=== PATIENT | female | born 1960 | race Caucasian/White ===

== ENCOUNTER → 2016-05-04 | Outpatient (CLI) | payer MEDICARE, OTHER ==
--- NOTE | 2016-05-04 13:12 | MM ---
Reason for exam: additional evaluation requested from prior study. Last mammogram was performed 1 year and 2 months ago. History: Patient is nulliparous. Benign MG stereo VAD BX RT of the right breast, March 18, 2015. Physical Findings: Dr. Fry did not find any significant physical abnormalities on exam. MG 3D Diag Mammo W/Cad CARMEN Bilateral CC and MLO view(s) were taken. Prior study comparison: March 06, 2015, right breast MG 3d work up w/cad RT. February 20, 2015, bilateral MG 3d screening mammo w/cad. The breast tissue is heterogeneously dense. This may lower the sensitivity of mammography. Finding: There are typically benign round, grouped/clustered and diffuse calcifications in the right breast. Previous mammotome biopsy in the right breast. There is no discrete abnormality. These results were verbally communicated with the patient and result sheet given to the patient on 05/04/16. ASSESSMENT: Benign, BI-RAD 2 RECOMMENDATION: Routine screening mammogram of both breasts in 1 year.
--- NOTE | 2016-05-04 22:00 | WWHP ---
CHIEF COMPLAINT: The patient is here for her routine gynecologic exam and mammogram. HPI: This is a 55-year-old, G2, P2 with an LMP of 2010. The patient is without gynecologic complaints. The patient is being seen with a integrated circuit layout designer because of the patient's history of deafness. PAST MEDICAL HISTORY: The patient was born deaf. She also has type 2 diabetes and hypothyroidism. MEDICATIONS: 1. Levothyroxine 175 mcg daily. 2. Glipizide 10 mg b.i.d. 3. Loratadine 10 mg daily. 4. Ibuprofen 800 mg t.i.d. p.r.n. 5. Janumet mg daily. ALLERGIES: No known drug allergies. PAST SURGICAL HISTORY: section x2, right elbow surgery, right hand surgery, cholecystectomy and removal of kidney stones in the past. She also had a right breast biopsy in 2014, which was benign. Past PLASTIC MOLDER and family histories are unchanged from the 2016 H&P. SOCIAL HISTORY: She denies tobacco, alcohol and drug use. She has been twice and is not seeing anybody at this time and is not sexually active. She does not work outside the home. REVIEW OF SYSTEMS: Weight has been stable. She denies respiratory, cardiac or GI problems. PHYSICAL EXAM: Blood pressure 130/71. Height 5 feet 0 inches. Weight 218 pounds. Temperature 97.0, pulse 71. This is a well-developed, obese white female who is alert and oriented x3, in no acute distress. HEENT: Patient is deaf. HEENT is otherwise within normal limits. NECK: Supple without mass or thyromegaly. CHEST AND LUNGS: Clear to auscultation. HEART: Regular rate and rhythm. Breasts are without mass or discharge. Axillary is negative for adenopathy. BACK: Negative for CVA tenderness. ABDOMEN: Obese, soft, nontender without palpable masses. PELVIC: External genitalia reveal mild atrophy without lesions. Cervix and vagina reveal mild atrophy without lesions. There is no evidence of prolapse. The uterus is midposition, nongravid size and nontender. There are no palpable adnexal masses or tenderness. Bimanual is somewhat limited secondary to her size. Rectovaginal is negative for mass or tenderness and is negative for occult blood. EXTREMITIES: Nontender. IMPRESSION: 1. A 55-year-old menopausal female with unremarkable gynecologic exam. 2. Obesity. PLAN: 1. Pap smear was deferred, since she had normal one last year. 2. Self-breast examination was discussed. 3. Mammogram will be done today. 4. I have recommended screening colonoscopy, since she has not had this done, and Dr. De La Garza's card was given to the patient for this. 5. She will return in 1 year.
== END | disposition home or self-care (01) ==
LOC: WWCWWP 11:43 → EEVIPCON 12:00
PROVIDERS: ATTEND Obstetrics & Gynecology
DX: R92.8 Other abnormal and inconclusive findings on diagnostic imaging of breast (principal)
CPT/HCPCS: G0204; G0279

== ENCOUNTER 2017-02-13 07:39 | Day surgery (SDC) | payer MEDICARE, OTHER ==
[2017-01-30 14:47] VITALS: BMI 42.4
[~2017-02-13 07:39] MED LIST: LACTATED RINGERS 1,000 ML IV SCH; LIDOCAINE 1% 20 ML VIAL (10MG/ML) FOR IV START INTRADERMA PRN
[2017-02-13 09:28] VITALS: RESP 16; TEMP 97.6
[2017-02-13 09:39] LABS: Glucose,Whole Blood 148 mg/dL (75-99)
[2017-02-13] MEDS ORDERED: PROPOFOL 10 MG/ML 20 ML VIAL IV ONE (10:09)
--- NOTE | 2017-02-13 10:24 | P.GSHP ---
History of Present Illness H&P Date: 02/13/17 Chief Complaint: Screening colonoscopy This a 56-year-old female referred from Dr. Clarita Armando. Patient is today for screening colonoscopy. She denies a significant GI complaints. Past Medical History Past Medical History: Diabetes Mellitus, Hyperlipidemia, Thyroid Disorder Additional Past Medical History / Comment(s): DEAF, KIDNEY STONE HISTORY History of Any Multi-Drug Resistant Organisms: None Reported Past Surgical History: Cholecystectomy, Orthopedic Surgery Additional Past Surgical History / Comment(s): RT elbow SX Past Anesthesia/Blood Transfusion Reactions: No Reported Reaction Smoking Status: Never smoker - Past Family History Mother History Unknown: Yes Additional Family Medical History / Comment(s): DOESN'T KNOW FAMILY HX Medications and Allergies Home Medications Medication Instructions Recorded Confirmed Type Ibuprofen [Motrin] 800 mg PO Q8HR PRN 02/24/14 02/13/17 History Loratadine [Claritin] 10 mg PO DAILY 02/24/14 02/13/17 History Atorvastatin [Lipitor] 10 mg PO DAILY 01/30/17 02/13/17 History Biotin 10,000 mcg PO DAILY 01/30/17 02/13/17 History Garcinia Cambogia 1 each PO DAILY 01/30/17 02/13/17 History Levothyroxine Sodium [Synthroid] 137 mcg PO DAILY 01/30/17 02/13/17 History metFORMIN HCL 1,000 mg PO BID 01/30/17 02/13/17 History Allergies Allergy/AdvReac Type Severity Reaction Status Date / Time No Known Allergies Allergy Verified 02/13/17 09:11 Surgical - Exam Vital Signs Temp Pulse Resp BP Pulse Ox 97.6 F 84 16 139/86 97 02/13/17 09:27 02/13/17 09:27 02/13/17 09:27 02/13/17 09:27 02/13/17 09:27 - General well developed, no distress - Eyes PERRL - ENT normal pinna - Neck no masses - Respiratory normal expansion - Cardiovascular Rhythm: regular - Abdomen Abdomen: soft, non tender Results - Labs Abnormal Lab Results - Last 24 Hours (Table) 02/13/17 Range/Units 09:26 POC Glucose (mg/dL) 148 H (75-99) mg/dL Assessment and Plan Assessment: We'll perform screening colonoscopy.
--- NOTE | 2017-02-13 10:35 | P.OP ---
Date of Procedure: 02/13/17 Preoperative Diagnosis: Screening colonoscopy Postoperative Diagnosis: External hemorrhoids Normal colon Procedure(s) Performed: Colonoscopy Anesthesia: MAC Surgeon: Kei Narayanan Pathology: none sent Condition: stable Disposition: PACU Description of Procedure: the patient's placed on the endoscopy table in the lateral position. She received IV sedation. Digital rectal exam was performed which revealed external hemorrhoids. The flexible colonoscope was then placed patient anus and passed throughout the entire colon. The ileocecal valve was visualized. The cecum, ascending, transverse colon appeared normal. The scope was then brought back to the descending and sigmoid colon and this appeared normal. Scope was then withdrawn into the rectum and this was normal. Scope was withdrawn for patient.
[2017-02-13 11:35] VITALS: BP 168/90; PULSE 80
== END 2017-02-13 11:48 | disposition home or self-care (01) ==
LOC: ORWHC2ENDO 07:39 → EEVIPCON 09:30 → ORWHC2ENDO 11:48
PROVIDERS: ATTEND Surgery
DX: Z12.11 Encounter for screening for malignant neoplasm of colon (principal); K64.4 Residual hemorrhoidal skin tags; E11.9 Type 2 diabetes mellitus without complications; E78.5 Hyperlipidemia, unspecified; E07.9 Disorder of thyroid, unspecified; H91.90 Unspecified hearing loss, unspecified ear; Z79.84 Long term (current) use of oral hypoglycemic drugs; Z79.899 Other long term (current) drug therapy
CPT/HCPCS: G0121; J2704

== ENCOUNTER → 2017-05-23 | Outpatient (CLI) | payer MEDICARE, OTHER ==
--- NOTE | 2017-05-25 07:59 | MM ---
Reason for exam: screening (asymptomatic). Last mammogram was performed 1 year and 1 month ago. History: Patient is postmenopausal and had first child at age 35. Benign MG stereo VAD BX RT of the right breast, March 18, 2015. Physical Findings: A clinical breast exam by your physician is recommended on an annual basis and results should be correlated with mammographic findings. MG 3D Screening Mammo W/Cad Bilateral CC and MLO view(s) were taken. Prior study comparison: May 04, 2016, bilateral MG 3d diag mammo w/cad CARMEN. March 06, 2015, right breast MG 3d work up w/cad RT. The breast tissue is heterogeneously dense. This may lower the sensitivity of mammography. Previous mammotome biopsy in the right breast with adjacent calcifications unchanged. There is chronic nodularity in the right breast superior anterior position. ASSESSMENT: Negative, BI-RAD 1 RECOMMENDATION: Routine screening mammogram of both breasts in 1 year.
== END | disposition home or self-care (01) ==
LOC: RADMAMWWP 07:23
PROVIDERS: ATTEND Family Medicine
DX: Z12.31 Encounter for screening mammogram for malignant neoplasm of breast (principal)
CPT/HCPCS: 77063; 77067

== ENCOUNTER → 2017-10-04 | Outpatient (CLI) | payer MEDICARE, OTHER ==
[2017-10-04 09:53] LABS: Albumin 4.2 g/dL (3.5-5.0); Calcium 9.6 mg/dL (8.4-10.2); Magnesium 1.4 mg/dL (1.6-2.3); Phosphorus 3.5 mg/dL (2.5-4.5); Potassium 5.4 mmol/L (3.5-5.1); Total Bilirubin 0.3 mg/dL (0.2-1.3); Total Protein 7.1 g/dL (6.3-8.2); Uric Acid 7.9 mg/dL (3.7-7.4)
[2017-10-04 13:00] LABS: MCH 28.5 pg (25.0-35.0)
[2017-10-04 13:12] LABS: Basophils # (A) 0.1 k/uL (0-0.2); Basophils % (A) 1 %; Eosinophils # (A) 0.4 k/uL (0-0.7); Eosinophils % (A) 4 %; HCT 37.3 % (34.0-46.0); Lymphocytes # (A) 1.2 k/uL (1.0-4.8); Lymphocytes % (A) 13 %; MCHC 32.3 g/dL (31.0-37.0); MCV 88.3 fL (80.0-100.0); Mean Platelet Volume 7.8; Monocytes # (A) 0.5 k/uL (0-1.0); Monocytes % (A) 5 %; Neutrophils # (A) 7.3 k/uL (1.3-7.7); Neutrophils % (A) 76 %; Platelet Count 345 k/uL (150-450); RBC 4.23 m/uL (3.80-5.40); RDW 14.8 % (11.5-15.5); WBC 9.6 k/uL (3.8-10.6)
[2017-10-04 16:26] LABS: Vitamin D 25 Hydroxy 26.5 ng/mL (30.0-100.0)
[2017-10-04 16:41] LABS: Parathyroid Hormone Intact 29.1 pg/mL (14.0-72.0)
[2017-10-04 20:02] LABS: Hemoglobin A1C 6.1 % (4.0-6.0)
== END | disposition home or self-care (01) ==
LOC: LABWHC1 08:58
PROVIDERS: ATTEND Family Medicine
DX: E11.22 Type 2 diabetes mellitus with diabetic chronic kidney disease (principal); N18.3 Chronic kidney disease, stage 3 (moderate)
CPT/HCPCS: 36415; 80053; 80061; 82043; 82306; 82570; 83036; 83735; 83970; 84100; 84550; 85025

== ENCOUNTER → 2017-12-20 | Outpatient (CLI) | payer MEDICARE, OTHER | END | disposition home or self-care (01) | LOC: LABWHC1 10:52 | PROVIDERS: ATTEND Physician Assistant Medical | DX: L65.9 Nonscarring hair loss, unspecified (principal) | CPT/HCPCS: 36415; 84132 ==

== ENCOUNTER → 2018-05-28 | Outpatient (CLI) | payer MEDICARE, OTHER ==
[2018-05-28 11:14] LABS: Basophils # (A) 0.1 k/uL (0-0.2); Basophils % (A) 1 %; Eosinophils # (A) 0.3 k/uL (0-0.7); Eosinophils % (A) 3 %; HCT 38.2 % (34.0-46.0); Lymphocytes # (A) 1.2 k/uL (1.0-4.8); Lymphocytes % (A) 12 %; MCH 28.9 pg (25.0-35.0); MCHC 31.4 g/dL (31.0-37.0); Mean Platelet Volume 6.5; Monocytes # (A) 0.4 k/uL (0-1.0); Monocytes % (A) 4 %; Neutrophils # (A) 8.4 k/uL (1.3-7.7); Neutrophils % (A) 81 %; Platelet Count 403 k/uL (150-450); RBC 4.15 m/uL (3.80-5.40); RDW 14.6 % (11.5-15.5); WBC 10.4 k/uL (3.8-10.6)
[2018-05-28 16:35] LABS: Parathyroid Hormone Intact 41.9 pg/mL (14.0-72.0)
[2018-05-28 16:50] LABS: Vitamin D 25 Hydroxy 36.6 ng/mL (30.0-100.0)
[2018-05-28 18:32] LABS: Albumin 4.5 g/dL (3.80-4.90); Albumin/Globulin Ratio 1.88 (1.60-3.17); Anion Gap 8.1 mmol/L (4.00-12.00); Calcium 9.7 mg/dL (8.7-10.3); Carbon Dioxide 18.9 mmol/L (21.6-31.8); Globulin 2.4 g/dL (1.6-3.3); LDL Cholesterol,Calculated 53.2 mg/dL (0.0-131.0); Total Bilirubin 0.2 mg/dL (0.3-1.2); Total Protein 6.9 g/dL (6.2-8.2); Uric Acid 6.9 mg/dL (2.9-7.7); VLDL Calculation 15.8 mg/dL (5.00-40.00)
[2018-05-28 21:13] LABS: Hemoglobin A1C 7.9 % (4.0-6.0)
[2018-05-30 07:54] LABS: Potassium 6.6 mmol/L (3.5-5.5)
== END ==
LOC: LABWHC1 10:04
PROVIDERS: ATTEND Family Medicine
DX: E78.5 Hyperlipidemia, unspecified (principal); E11.22 Type 2 diabetes mellitus with diabetic chronic kidney disease; N18.3 Chronic kidney disease, stage 3 (moderate); E83.42 Hypomagnesemia
CPT/HCPCS: 36415; 80053; 80061; 82043; 82306; 82570; 83036; 83735; 83970; 84550; 85025

== ENCOUNTER → 2018-08-24 | Outpatient (CLI) | payer MEDICARE, OTHER ==
[2018-08-24 11:20] LABS: HCT 38.2 % (34.0-46.0); MCH 28.8 pg (25.0-35.0); MCHC 31.6 g/dL (31.0-37.0); MCV 91.4 fL (80.0-100.0); Mean Platelet Volume 7.8; Platelet Count 285 k/uL (150-450); RBC 4.18 m/uL (3.80-5.40); RDW 14.8 % (11.5-15.5); WBC 7.9 k/uL (3.8-10.6)
[2018-08-24 11:29] LABS: INR 0.9 (<1.2); Partial Thromboplastin Time 23.2 sec (22.0-30.0); Prothrombin Time 10.2 sec (9.0-12.0)
[2018-08-24 11:41] LABS: Appearance,Urine Clear (Clear); Bacteria,Urine Rare /hpf; Bilirubin,Urine Negative (Negative); Blood,Urine Negative (Negative); Color,Urine Yellow; Glucose,Urine (UA) Negative (Negative); Ketones,Urine Negative (Negative); Leukocyte Esterase,Urine Moderate (Negative); Nitrite,Urine Negative (Negative); PH, Urine 6.5 (5.0-8.0); Protein,Urine Negative (Negative); RBC,Urine 6 /hpf (0-5); Squamous Epithelial Cell,Urine 3 /hpf (0-4); Urobilinogen,Urine <2.0 mg/dL (<2.0); WBC,Urine 9 /hpf (0-5)
[2018-08-24 11:47] LABS: Albumin 4.3 g/dL (3.5-5.0); Calcium 9.7 mg/dL (8.4-10.2); Potassium 5.5 mmol/L (3.5-5.1); Total Bilirubin 0.5 mg/dL (0.2-1.3); Total Protein 7.3 g/dL (6.3-8.2)
[2018-08-24 17:56] LABS: Hemoglobin A1C 6.7 % (4.0-6.0)
== END | disposition home or self-care (01) ==
LOC: LABPAT 10:15
PROVIDERS: ATTEND Orthopaedic Surgery
DX: Z01.812 Encounter for preprocedural laboratory examination (principal); E11.65 Type 2 diabetes mellitus with hyperglycemia
CPT/HCPCS: 80053; 81001; 83036; 85027; 85610; 85730; 86850; 86900; 86901; 87070

== ENCOUNTER 2018-09-04 07:00 | Inpatient (IN) | payer MEDICARE, OTHER ==
[~2018-09-04 07:00] MED LIST changes: +HYDROmorphone 0.5 MG/0.5 ML SYRINGE IVP PRN; -LACTATED RINGERS 1,000 ML IV SCH; +MIDAZOLAM 2 MG/2 ML VIAL IV PRN; +ONDANSETRON 4 MG/2 ML VIAL IVP ONE; +ROPIVACAINE 246.25 MG, EPINEPHrine 0.5 MG, KETOROLAC 30 MG, cloNIDine HCL/PF 80 MCG, WA... MISCELLANE ONE; +SCOPOLAMINE 1.5MG/72HR PATCH TRANSDERM ONE; +TRANEXAMIC ACID 1,000 MG in SODIUM CHLORIDE 0.9% 100 ML IVPB ONE; +ceFAZolin IN SWFI 2 GM/20 ML SYRINGE IVP ONE
[2018-09-04] MEDS ORDERED: NALOXONE 0.4 MG/ML 1 ML VIAL IV PRN (08:48)
[2018-09-04] MEDS ORDERED: HYDROmorphone 1 MG/ML 1 ML SYRINGE IVP PRN (08:48)
[2018-09-04] MEDS ORDERED: hydrOXYzine PAMOATE 25 MG CAP PO PRN (08:48)
[2018-09-04] MEDS ORDERED: ONDANSETRON 4 MG/2 ML VIAL IVP PRN (08:48)
[2018-09-04] MEDS ORDERED: HYDROmorphone 0.5 MG/0.5 ML SYRINGE IVP PRN ×2 (08:48)
[2018-09-04] MEDS ORDERED: DIAZEPAM 5 MG TAB PO PRN (08:48)
[2018-09-04] MEDS ORDERED: HYDROcodone/APAP 5-325MG 1 EACH TAB PO PRN (08:48)
[2018-09-04] MEDS ORDERED: MAGNESIUM HYDROXIDE 2,400 MG/10 ML CUP PO PRN (08:48)
[2018-09-04 08:54] LABS: Glucose,Whole Blood 127 mg/dL (75-99)
[2018-09-04] MEDS: LACTATED RINGERS 1,000 ML IV SCH ×2 (08:55→09:23)
[2018-09-04] MEDS: ACETAMINOPHEN TAB 500 MG TAB PO ONE ×2 (09:00→16:34)
[2018-09-04] MEDS: DEXAMETHASONE SOD PHOSPHATE 10 MG/ML 1 ML VIAL IV ONE ×2 (09:00→18:18)
[2018-09-04] MEDS: MELOXICAM 7.5 MG TAB PO ONE ×2 (09:00→16:35)
[2018-09-04] MEDS ORDERED: fentaNYL (PF) 50 MCG/ML 2 ML AMP ONE (09:18)
[2018-09-04] MEDS ORDERED: LIDOCAINE 1% INJ 10MG/ML (20 ML MDV) ONE (09:18)
[2018-09-04] MEDS ORDERED: SODIUM CHLORIDE 0.9% IRRIG 1,000 ML BTL IRRIGATION ONE (09:18)
[2018-09-04] MEDS ORDERED: TRANEXAMIC ACID 1,000 MG/10 ML VIAL ONE (09:18)
[2018-09-04] MEDS ORDERED: MIDAZOLAM 2 MG/2 ML VIAL ONE (09:18)
[2018-09-04] MEDS ORDERED: HEPARIN SODIUM,PORCINE 10,000 UNIT/ML 1 ML VIAL ONE (09:18)
[2018-09-04] MEDS ORDERED: SODIUM CHLORIDE 0.9% 100 ML BAG ONE (09:18)
[2018-09-04] MEDS ORDERED: PROPOFOL 10 MG/ML 20 ML VIAL IV ONE (09:18)
[2018-09-04] MEDS ORDERED: ceFAZolin 3,000 MG in SODIUM CHLORIDE 0.9% IRRIGATIO 3,000 ML IRRIGATION ONE (09:23)
--- NOTE | 2018-09-04 10:39 | P.OP ---
Date of Procedure: 09/04/18 Preoperative Diagnosis: Severe osteoarthritis left hip Postoperative Diagnosis: Severe osteoarthritis left hip Procedure(s) Performed: Left total hip arthroplasty with a direct anterior approach Implants: Foster and nephew Polarstem size 1 standard Foster & Nephew R3, 3 hole acetabular shell, 48 mm Foster [employer] Nephew reflection 6.5 mm cancellus screw, 20 mm 2 Foster [employer] Nephew R3, XLPE 20 acetabular liner Foster & Nephew Oxinium femoral head 32 m, -3 All components were press-fit. The articulation is Oxinium on polyethylene. Anesthesia: spinal Surgeon: Bryce Rodriguez Critical Care Physician Assistant #1: Dorcas Braga Estimated Blood Loss (ml): 100 Pathology: other Condition: stable Disposition: PACU Indications for Procedure: After failure of conservative treatment we discussed the surgical and nonsurgical treatment options at length. Patient wishes to proceed with a total hip arthroplasty with a direct anterior approach. Complications specific to this procedure were discussed at length, including but not limited to infection, leg length discrepancy, dislocation, and nerve injury. Patient is aware of all these complications and informed consent was obtained Operative Findings: The operative findings are consistent with severe osteoarthritis of the left hip Description of Procedure: Patient was seen and evaluated in the preoperative area, consent was reviewed, and the surgical site was marked with a skin marker. Patient was then brought to the operating room and given prophylactic antibiotics intravenously. 1 g of Tranexamic acid was also given. A spinal anesthetic was administered by the anesthesia department. The patient was then placed on the [place] table with the bony prominences well-padded. The hip area was then prepped and draped in usual sterile fashion. A universal timeout was then performed, which confirmed the patient's name, surgical site, ALLERGIES, and procedure being performed. Next the incision site was located at 1 cm distal and 1 cm lateral to the anterior superior iliac spine. The skin and subcutaneous tissues were sharply incised. Incision was carefully dissected down to the fascia overlying the tensor fascia edilia muscle. This fascia was then incised in line with the incision. Next, using blunt finger dissection, the tensor fascia edilia muscle was dissected off its investing fascia. The muscle was then carefully retracted laterally with a cobra retractor over the lateral neck of the femur. Next, the circumflex vessels were identified and cauterized using the AquaMantis device. The anterior hip capsule was then exposed. The capsule was then opened and an inverted T fashion. Cobra retractors were then placed intracapsularly. The proximal femur was then visualized. The femoral neck was then osteotomized appropriate level above the lesser trochanter. Small amount of traction was placed with the [place] table. A small wedge of bone was then removed from the remaining femoral head. Next, using a corkscrew femoral head was easily removed from the acetabulum. On gross visual inspection, the femoral head had complete loss of articular cartilage in multiple periarticular osteophytes. Attention was then turned to the acetabulum. the acetabulum was exposed and any remaining labrum was excised. Sequential reaming of the acetabulum was performed using fluoroscopic guidance. When the appropriate size was reached, a trial was then placed. The position and fit of the trial was checked with fluoroscopy. The trial was then removed. Then, using fluoroscopic guidance, the final implant was impacted at 20 of anteversion and 40 of abduction, and fully seated in the acetabulum. 2 screws were then placed in the acetabulum. Again fluoroscopy was used to check position of the screws. Next, the liner was then impacted, with a 20 elevated liner located in the anterior superior quadrant. Component locking was confirmed. Attention was then directed to the femur. With the aid of the [place] table, the femur was externally rotated to approximately 130, extended, and abducted under the opposite leg. A side hook was then placed under the proximal femur, and the side hook elevator was used to elevate the proximal femur. Retractors were then placed. A capsular release was performed, as well as a release of the conjoined tendon, which afforded excellent visualization of the proximal femur. Next, a box osteotome was used to lateralize the proximal femur. A sail finisher hand was then used to locate the femoral canal. Sequential broaching was then performed with appropriate size which afforded excellent fixation in the proximal femur. A trial was then placed with appropriate head and neck, and the hip was gently reduced with the aid of the [place] table. Fluoroscopy was then used to check position of the components, as well as to ensure equal leg lengths. The hip was then gently dislocated and the trials were then removed. Final implants were then impacted and the hip was again reduced. Final fluoroscopic x-rays confirmed that the components were in anatomic position, as well as equal leg lengths. The hip was also taken through range of motion, and found to be stable. The hip was then copiously irrigated with antibiotic solution with pulsatile lavage. The hip was then irrigated with Irrisept solution. The soft tissues were then injected with a ropivacaine solution, which consisted of 246.25 mg of ropivacaine, 0.5 mg of epinephrine, 30 mg of Toradol, 80 g of clonidine, and 48.45 mL of sterile water, for a total of 100 mL of fluid injected. A second dose of 1 g of Tranexamic acid was also given. the fascia was then closed with 2-0 strata fix suture. The subcutaneous tissue was closed with 3-0 Vicryl. The subcuticular tissue was closed with 3-0 strata fix suture. The skin was then closed with Dermabond glue and a sterile silver dressing. The patient was then transferred to the recovery room in stable condition. The wellness assistant HAYDER Gooden was required due to the complexity of surgery, and the need for skilled surgical services manager for positioning, draping, exposure, retraction, and closure of the wound.
--- NOTE | 2018-09-04 10:54 | FL ---
EXAMINATION TYPE: FL guidance operating room, XR Hip Limited LT DATE OF EXAM: 09/04/2018 CLINICAL HISTORY: Left hip osteoarthritis. TECHNIQUE: Fluoroscopy. Limited views left hip. COMPARISON: None. FINDINGS: Fluoroscopic guidance was provided during left hip replacement procedure performed by Dr. Rodriguez. A total of 53 seconds of fluoroscopic time was utilized during the procedure and two spot intraoperative images are acquired. Intraoperative images acquired show metallic cover from left hip arthroplasty satisfactory in positio n on single frontal projection. IMPRESSION: As Above.
[2018-09-04 11:19] LABS: Glucose,Whole Blood 167 mg/dL (75-99)
--- NOTE | 2018-09-04 11:34 | XR ---
EXAMINATION TYPE: XR Hip Limited LT DATE OF EXAM: 09/04/2018 CLINICAL HISTORY: Left hip pain and osteoarthritis. TECHNIQUE: Single AP portable view of left hip is obtained immediately postoperatively. COMPARISON: None. FINDINGS: Metallic hardware from left hip arthroplasty is seen and appears satisfactory in alignment and position. There is evidence of recent surgery with subcutaneous gas noted laterally. IMPRESSION: Metallic hardware from left hip arthroplasty is satisfactory in position.
[2018-09-04] MEDS: ceFAZolin IN SWFI 2 GM/20 ML SYRINGE IVP SCH (16:44)
[2018-09-04] MEDS: HYDROcodone/APAP 5-325MG 1 EACH TAB PO PRN (17:47)
[2018-09-04] MEDS: ASPIRIN 325 MG TAB PO SCH ×2 (18:19→20:48)
[2018-09-04] MEDS: SODIUM CHLORIDE 0.9% 1,000 ML IV SCH ×2 (18:19→20:54)
--- NOTE | 2018-09-04 19:13 | P.CONS ---
History of Present Illness - Reason for Consult Consult date: 09/04/18 Medical management Requesting physician: Bryce Rodriguez - Chief Complaint Left hip pain - History of Present Illness 57-year-old female with PMH of deafness, depression, diabetes mellitus, hypothyroidism presents to [facility] for elective left total hip replacement. [facility] has been consulted for medical management of this patient. Patient was seen and examined. No acute events overnight. Patient reports no pain in her left hip at this time. She does complain of numbness around the hip region on the left side. A urban designer was used for the interview. Patient denies any headache, lower extremity edema, nausea, vomiti ng, cough, chest pain, shortness of breath, palpitations, changes in urination or bowel habits. Being able to urinate freely since her surgery. States that she has also had a bowel movement after surgery. Review of Systems Pertinent positives and negatives as discussed in HPI, a complete review of systems was performed and all other systems are negative. Past Medical History Past Medical History: Diabetes Mellitus, Hyperlipidemia, Thyroid Disorder Additional Past Medical History / Comment(s): DEAF, KIDNEY STONE HISTORY History of Any Multi-Drug Resistant Organisms: None Reported Past Surgical History: Cholecystectomy, Orthopedic Surgery Additional Past Surgical History / Comment(s): RT elbow SX Past Anesthesia/Blood Transfusion Reactions: No Reported Reaction Additional Past Anesthesia/Blood Transfusion Reaction / Comm: REQUESTS TO BE AW AKENED GENTLY Past Psychological History: No Psychological Hx Reported - Past Family History Mother History Unknown: Yes Additional Family Medical History / Comment(s): DOESN'T KNOW FAMILY HX Medications and Allergies Home Medications Medication Instructions Recorded Confirmed Type Ibuprofen [Motrin] 800 mg PO Q8HR PRN 02/24/14 09/04/18 History Loratadine [Claritin] 10 mg PO DAILY 02/24/14 09/04/18 History Atorvastatin [Lipitor] 10 mg PO HS 01/30/17 09/04/18 History metFORMIN HCL 1,000 mg PO BID 01/30/17 09/04/18 History Aspirin [Adult Low Dose Aspirin EC] 81 mg PO DAILY 08/27/18 09/04/18 History Escitalopram Oxalate [Lexapro] 10 mg PO DAILY 08/27/18 09/04/18 History glipiZIDE [Glucotrol] 5 mg PO AC-BID 08/27/18 09/04/18 History Levothyroxine Sodium [Synthroid] 125 mcg PO DAILY 09/04/18 09/04/18 History Allergies Allergy/AdvReac Type Severity Reaction Status Date / Time No Known Allergies Allergy Verified 09/04/18 10:15 Physical Exam Vitals: Vital Signs Temp Pulse Resp BP Pulse Ox 09/04/18 13:56 73 114/71 93 L 09/04/18 13:40 76 108/72 95 09/04/18 13:26 81 130/78 95 09/04/18 13:10 81 137/78 95 09/04/18 12:55 64 111/70 94 L 09/04/18 12:41 81 119/70 97 09/04/18 12:26 78 120/70 94 L 09/04/18 11:55 70 115/81 92 L 09/04/18 11:41 97.2 F L 69 113/70 93 L 09/04/18 11:33 66 16 90/51 95 09/04/18 11:15 72 16 92/58 92 L 09/04/18 11:04 71 16 93/54 95 09/04/18 10:58 97.2 F L 73 16 110/57 97 09/04/18 08:28 97.1 F L 82 16 129/62 94 L Intake and Output 09/04/18 09/04/18 09/04/18 06:59 14:59 22:59 Intake Total 851 Output Total 100 Balance 751 Intake: IV 851 Output: Estimated Blood Loss 100 General: [non toxic], [no distress], [appears at stated age] Derm: [warm], [dry] Head: [atraumatic], [normocephalic], [symmetric] Eyes: [EOMI], [no lid lag], [anicteric sclera] Mouth: [no lip lesion], [mucus membranes moist] Cardiovascular: [S1S2 reg], [no murmur], [positive posterior tibial pulse bilateral], Lungs: [CTA bilateral], [no rhonchi, no rales] , [no accessory muscle use] Abdominal: [soft], [ nontender to palpation], [no guarding], [no appreciable organomegaly] Ext: [no gross muscle atrophy], [no edema], [no contractures], [left hip dressing clean dry and intact] Neuro: [decreased sensation to touch of the left lower extremity] Psych: [Alert], [oriented], [appropriate affect] Results CBC & Chem 7: 09/04/18 08:35 Labs: Abnormal Lab Results - Last 24 Hours (Table) 09/04/18 09/04/18 Range/Units 08:48 11:17 POC Glucose (mg/dL) 127 H 167 H (75-99) mg/dL Assessment and Plan Assessment: Assessment and Plan Diabetes mellitus Hypothyroidism Depression Left hip osteoarthritis status post left total hip replacement POD 0 [id number] glucose 167. Plans: Insulin sliding scale. Regular Accu-Cheks. Hypoglycemic precautions. Plans: Continue Synthroid. Plans: Continue Lexapro. Management as per orthopedic surgery. Adequate pain management. Follow PT and OT recommendations. Thank you for this consult. Please call with any additional questions or concerns.
[2018-09-04 19:29] VITALS: BMI 41.1
[2018-09-04 20:24] LABS: Glucose,Whole Blood 269 mg/dL (75-99)
[2018-09-04] MEDS: INSULIN ASPART (NovoLOG) 100 UNIT/ML VIAL SQ SCH (20:46)
[2018-09-04] MEDS: ATORVASTATIN 10 MG TAB PO SCH (20:48)
[2018-09-04] MEDS: SENNOSIDES-DOCUSATE SODIUM 1 EACH TAB PO SCH (20:53)
[2018-09-05] MEDS: HYDROcodone/APAP 5-325MG 1 EACH TAB PO PRN ×5 (00:09→21:53)
[2018-09-05] MEDS: ceFAZolin IN SWFI 2 GM/20 ML SYRINGE IVP SCH (00:09)
[2018-09-05] MEDS: LACTATED RINGERS 1,000 ML IV SCH (01:32)
[2018-09-05] MEDS: LEVOTHYROXINE 125 MCG TAB PO SCH (06:06)
[2018-09-05 07:03] LABS: Glucose,Whole Blood 133 mg/dL (75-99)
[2018-09-05 08:21] LABS: Basophils % (A) 0 %; Eosinophils # (A) 0.1 k/uL (0-0.7); Eosinophils % (A) 1 %; HCT 33.6 % (34.0-46.0); HGB 10.5 gm/dL (11.4-16.0); Lymphocytes # (A) 0.8 k/uL (1.0-4.8); Lymphocytes % (A) 6 %; MCH 28.5 pg (25.0-35.0); MCHC 31.3 g/dL (31.0-37.0); MCV 90.8 fL (80.0-100.0); Mean Platelet Volume 7.6; Monocytes # (A) 0.6 k/uL (0-1.0); Monocytes % (A) 5 %; Neutrophils # (A) 11.5 k/uL (1.3-7.7); Neutrophils % (A) 87 %; Platelet Count 261 k/uL (150-450); RDW 14.2 % (11.5-15.5); WBC 13.2 k/uL (3.8-10.6)
[2018-09-05] MEDS: LORATADINE 10 MG TAB PO SCH (08:24)
[2018-09-05] MEDS: MELOXICAM 7.5 MG TAB PO SCH (08:24)
[2018-09-05] MEDS: ESCITALOPRAM 10 MG TAB PO SCH ×2 (08:24→08:25)
--- NOTE | 2018-09-05 08:48 | P.PN ---
Subjective Progress Note Date: 09/05/18 This is a 57-year-old female who is status post left total hip arthroplasty. This is postoperative day #1 and patient is seen and evaluated at bedside with Dr. Bryce Rodriguez. Patient's past medical history significant for hearing impairment, diabetes mellitus, hyperlipidemia and thyroid disorder. Marshmallow Maker is present. Patient states that she is having some numbness in the left foot and this is why she was unable to walk with physical therapy yesterday. Patient states that she has been up to use the commode chair. Patient denies any fever/chills, abdominal pain, shortness of breath or chest pain. Objective - Vital Signs Vital signs: Vital Signs Temp 98.0 F 09/05/18 07:00 Pulse 79 09/05/18 07:00 Resp 16 09/05/18 07:00 BP 96/60 09/05/18 07:00 Pulse Ox 96 09/05/18 07:00 Intake & Output 09/04/18 09/05/18 09/05/18 18:59 06:59 18:59 Intake Total 1781 420 Output Total 100 Balance 1681 420 Intake: IV 851 Intake, IV Titration 280 420 Amount Sodium Chloride 0.9% 1, 280 420 000 ml @ 70 mls/hr IV . [id number] [facility] Rx#:[id number] Oral 650 Output: Estimated Blood Loss 100 Other: Voiding Method Bedside Commode Bedside Commode # Voids 2 3 # Bowel Movements 1 - Exam Vital signs are stable. Patient is in no acute distress and is alert and or iented 3. Calf is soft and nontender to palpation. Dressing is clean, dry, and intact. Patient has full range of motion of the right foot and ankle without pain or difficulty. Patient has some difficulty with dorsiflexion of the left foot. Patient has some decreased sensation in the left foot. Neurovascular status and circulatory status are intact. - Labs CBC & Chem 7: 09/05/18 07:40 09/04/18 08:35 Labs: Abnormal Lab Results - Last 24 Hours (Table) 09/04/18 09/04/18 09/04/18 Range/Units 08:48 11:17 20:11 WBC (3.8-10.6) k/uL RBC (3.80-5.40) m/uL Hgb (11.4-16.0) gm/dL Hct (34.0-46.0) % Neutrophils # (1.3-7.7) k/uL Lymphocytes # (1.0-4.8) k/uL POC Glucose (mg/dL) 127 H 167 H 269 H (75-99) mg/dL 09/05/18 09/05/18 Range/Units 07:02 07:40 WBC 13.2 H (3.8-10.6) k/uL RBC 3.70 L (3.80-5.40) m/uL Hgb 10.5 L (11.4-16.0) gm/dL Hct 33.6 L (34.0-46.0) % Neutrophils # 11.5 H (1.3-7.7) k/uL Lymphocytes # 0.8 L (1.0-4.8) k/uL POC Glucose (mg/dL) 133 H (75-99) mg/dL Assessment and Plan Assessment: Diabetes mellitus Hyperlipidemia Thyroid disorder (1) Osteoarthritis of left hip Current Visit: Yes Status: Acute Code(s): M16.12 - UNILATERAL PRIMARY OSTEOARTHRITIS, LEFT HIP SNOMED Code(s): 310114790633276 (2) Status post total hip replacement, left Current Visit: Yes Status: Acute Code(s): Z96.642 - PRESENCE OF LEFT ARTIFICIAL HIP JOINT SNOMED Code(s): 508337069824 Plan: Continue routine postop care and pain control. Continue anticoagulation with aspirin. Weightbearing as tolerated with a walker. Physical therapy today. Per physical therapy, the patient was able to get out of bed by herself and walk with assistance today, but patient does have difficulty with dorsiflexion of the left foot. Leave dressing in place for 10 days. Appreciate input from medicine. Possible discharge home with homecare tomorrow or to rehab Monday.
[2018-09-05] MEDS: INSULIN ASPART (NovoLOG) 100 UNIT/ML VIAL SQ SCH ×4 (11:24→21:53)
[2018-09-05 11:25] LABS: Glucose,Whole Blood 164 mg/dL (75-99)
[2018-09-05] MEDS: ASPIRIN 325 MG TAB PO SCH ×2 (11:26→19:47)
--- NOTE | 2018-09-05 11:42 | P.PN ---
Subjective Progress Note Date: 09/05/18 Principal diagnosis: Left hip pain Patient was seen and examined. No acute events overnight. Able to work with PT this morning. Complains a 10 out of 10 pain in her left hip after ambulating. She continues to complain of numbness below her knee and difficulty with plantar and dorsiflexion. She denies any changes in urination or bowel habits. No chest, shortness of breath or palpitations. Objective - Vital Signs Vital signs: Vital Signs Temp 98.0 F 09/05/18 07:00 Pulse 79 09/05/18 08:24 Resp 16 09/05/18 08:24 BP 96/60 09/05/18 07:00 Pulse Ox 96 09/05/18 07:00 Intake & Output 09/04/18 09/05/18 09/05/18 18:59 06:59 18:59 Intake Total 1781 420 Output Total 100 Balance 1681 420 Intake: IV 851 Intake, IV Titration 280 420 Amount Sodium Chloride 0.9% 1, 280 420 000 ml @ 70 mls/hr IV . [id number] [facility] Rx#:[id number] Oral 650 Output: Estimated Blood Loss 100 Other: Voiding Method Bedside Commode Bedside Commode Bedside Commode # Voids 2 3 # Bowel Movements 1 - Exam General: [non toxic], [no distress], [appears at stated age] Derm: [warm], [dry] Head: [atraumatic], [normocephalic], [symmetric] Eyes: [EOMI], [no lid lag], [anicteric sclera] Mouth: [no lip lesion], [mucus membranes moist] Cardiovascular: [S1S2 reg], [no murmur], [positive posterior tibial pulse bilateral] Lungs: [CTA bilateral], [no rhonchi, no rales] , [no accessory muscle use] Abdominal: [soft], [ nontender to palpation], [no guarding], [no appreciable organomegaly] Ext: [no gross muscle atrophy], [no edema], [no contractures], [left hip dressing clean dry and intact, decreased sensation to touch in the left foot, limited dorsi and plantar flexion] Neuro: [decreased sensation to touch of the left lower extremity] Psych: [Alert], [oriented], [appropriate affect] - Labs CBC & Chem 7: 09/05/18 07:40 09/04/18 08:35 Labs: Abnormal Lab Results - Last 24 Hours (Table) 09/04/18 09/05/18 09/05/18 Range/Units 20:11 07:02 07:40 WBC 13.2 H (3.8-10.6) k/uL RBC 3.70 L (3.80-5.40) m/uL Hgb 10.5 L (11.4-16.0) gm/dL Hct 33.6 L (34.0-46.0) % Neutrophils # 11.5 H (1.3-7.7) k/uL Lymphocytes # 0.8 L (1.0-4.8) k/uL POC Glucose (mg/dL) 269 H 133 H (75-99) mg/dL 09/05/18 Range/Units 11:23 WBC (3.8-10.6) k/uL RBC (3.80-5.40) m/uL Hgb (11.4-16.0) gm/dL Hct (34.0-46.0) % Neutrophils # (1.3-7.7) k/uL Lymphocytes # (1.0-4.8) k/uL POC Glucose (mg/dL) 164 H (75-99) mg/dL Assessment and Plan Assessment: Assessment and Plan Leukocytosis Diabetes mellitus Hypothyroidism Depression Left hip osteoarthritis status post left total hip replacement POD 0 WBC count 13.2. Plan: Likely reactive. No signs of infection. Daily CBC. Kgugs-iy-zahi glucose 133. Plans: Insulin sliding scale. Regular Accu-Cheks. Hypoglycemic precautions. Plans: Continue Synthroid. Plans: Continue Lexapro. Management as per orthopedic surgery. Adequate pain management. Follow PT and OT recommendations. Thank you for this consult. Please call with any additional questions or concerns.
[2018-09-05 16:12] LABS: Glucose,Whole Blood 210 mg/dL (75-99)
[2018-09-05] MEDS: SENNOSIDES-DOCUSATE SODIUM 1 EACH TAB PO SCH (19:47)
[2018-09-05] MEDS: ATORVASTATIN 10 MG TAB PO SCH (19:47)
[2018-09-05] MEDS: SODIUM CHLORIDE 0.9% 1,000 ML IV SCH (20:01)
[2018-09-05 20:12] LABS: Glucose,Whole Blood 219 mg/dL (75-99)
[2018-09-06] MEDS: HYDROcodone/APAP 5-325MG 1 EACH TAB PO PRN ×4 (03:27→22:07)
[2018-09-06] MEDS: SODIUM CHLORIDE 0.9% 1,000 ML IV SCH ×2 (04:15→19:08)
[2018-09-06] MEDS: LACTATED RINGERS 1,000 ML IV SCH (04:16)
[2018-09-06 06:53] LABS: Glucose,Whole Blood 110 mg/dL (75-99)
[2018-09-06] MEDS: INSULIN ASPART (NovoLOG) 100 UNIT/ML VIAL SQ SCH ×4 (06:56→20:39)
[2018-09-06] MEDS: LEVOTHYROXINE 125 MCG TAB PO SCH (07:08)
[2018-09-06] MEDS: ASPIRIN 325 MG TAB PO SCH ×2 (07:08→19:34)
[2018-09-06] MEDS: MELOXICAM 7.5 MG TAB PO SCH (07:09)
[2018-09-06] MEDS: LORATADINE 10 MG TAB PO SCH (07:09)
--- NOTE | 2018-09-06 08:22 | P.PN ---
Subjective Progress Note Date: 09/06/18 This is a 57-year-old female who is status post left total hip arthroplasty. This is postoperative day #2 and patient is seen and evaluated at bedside. Patient's past medical history is significant for hearing impairment, diabetes mellitus, hyperlipidemia and thyroid disorder. [employer] Att[employer] is present. Patient states that the pain in her left hip is well controlled. Patient states that she has been up and walking. Patient reports continued numbness in the left foot. Patient denies any fever/chills, abdominal pain, shortness of breath or chest pain. Objective - Vital Signs Vital signs: Vital Signs Temp 98.4 F 09/06/18 07:00 Pulse 84 09/06/18 07:00 Resp 16 09/06/18 07:00 BP 119/74 09/06/18 07:00 Pulse Ox 93 L 09/06/18 07:00 Intake & Output 09/05/18 09/06/18 09/06/18 18:59 06:59 18:59 Intake Total 490 237 Balance 490 237 Intake: Intake, IV Titration 490 Amount Sodium Chloride 0.9% 1, 490 000 ml @ 70 mls/hr IV . [id number] [facility] Rx#:[id number] Oral 237 Other: Voiding Method Bedside Commode Bedside Commode # Voids 4 # Bowel Movements 2 - Exam Vital signs are stable. Patient is in no acute distress and is alert and oriented 3. Calf is soft and nontender to palpation. Dressing is clean, dry, and intact. Patient has full range of motion of the right foot and ankle without pain or difficulty. Patient has some difficulty with dorsiflexion of the left foot. Patient has some decreased sensation in the left foot. Neurovascular status and circulatory status are intact. - Labs CBC & Chem 7: 09/05/18 07:40 09/04/18 08:35 Labs: Abnormal Lab Results - Last 24 Hours (Table) 09/05/18 09/05/18 09/05/18 Range/Units 07:40 11:23 16:05 WBC 13.2 H (3.8-10.6) k/uL RBC 3.70 L (3.80-5.40) m/uL Hgb 10.5 L (11.4-16.0) gm/dL Hct 33.6 L (34.0-46.0) % Neutrophils # 11.5 H (1.3-7.7) k/uL Lymphocytes # 0.8 L (1.0-4.8) k/uL POC Glucose (mg/dL) 164 H 210 H (75-99) mg/dL 09/05/18 09/06/18 Range/Units 20:11 06:51 WBC (3.8-10.6) k/uL RBC (3.80-5.40) m/uL Hgb (11.4-16.0) gm/dL Hct (34.0-46.0) % Neutrophils # (1.3-7.7) k/uL Lymphocytes # (1.0-4.8) k/uL POC Glucose (mg/dL) 219 H 110 H (75-99) mg/dL Assessment and Plan Assessment: Diabetes mellitus Hyperlipidemia Thyroid disorder (1) Osteoarthritis of left hip Current Visit: Yes Status: Acute Code(s): M16.12 - UNILATERAL PRIMARY OSTEOARTHRITIS, LEFT HIP SNOMED Code(s): 134503652175316 (2) Status post total hip replacement, left Current Visit: Yes Status: Acute Code(s): Z96.642 - PRESENCE OF LEFT ARTIFICIAL HIP JOINT SNOMED Code(s): 996431904189 Plan: Continue routine postop care and pain control. Continue anticoagulation with aspirin. Weightbearing as tolerated with a walker. Physical therapy today. Per physical therapy, the patient was able to get out of bed by herself and walk with assistance yesterday. We will order AFO for the left foot. Leave dressing in place for 10 days. Appreciate input from medicine. Likely discharge to rehab tomorrow.
[2018-09-06 11:44] LABS: Glucose,Whole Blood 138 mg/dL (75-99)
--- NOTE | 2018-09-06 12:58 | P.PN ---
Subjective Progress Note Date: 09/06/18 Principal diagnosis: left hip pain patient was seen and examined. No acute events overnight. Help of an interpreter and translator is used. Patient reports well-controlled pain in her left hip. Patient continues to complain of numbness, slightly improved over the left lower extremity. She reports some difficulty in dorsi and plantar flexion of the left foot. She denies any chest pain, shortness of breath or palpitations. No nausea or vomiting. No fever or chills. Excited to go to rehab. Objective - Vital Signs Vital signs: Vital Signs Temp 98.4 F 09/06/18 07:00 Pulse 84 09/06/18 07:00 Resp 16 09/06/18 07:00 BP 119/74 09/06/18 07:00 Pulse Ox 93 L 09/06/18 07:00 Intake & Output 09/05/18 09/06/18 09/06/18 18:59 06:59 18:59 Intake Total 490 237 Balance 490 237 Intake: Intake, IV Titration 490 Amount Sodium Chloride 0.9% 1, 490 000 ml @ 70 mls/hr IV . [id number] [facility] Rx#:[id number] Oral 237 Other: Voiding Method Bedside Commode Bedside Commode Bedside Commode # Voids 4 # Bowel Movements 2 - Exam General: [non toxic], [no distress], [appears at stated age] Derm: [warm], [dry] Head: [atraumatic], [normocephalic], [symmetric] Eyes: [EOMI], [no lid lag], [anicteric sclera] Mouth: [no lip lesion], [mucus membranes moist] Cardiovascular: [S1S2 reg], [no murmur], [positive posterior tibial pulse bilateral] Lungs: [CTA bilateral], [no rhonchi, no rales] , [no accessory muscle use] Abdominal: [soft], [ nontender to palpation], [no guarding], [no appreciable organomegaly] Ext: [no gross muscle atrophy], [no edema], [no contractures], [left hip dressing clean dry and intact, decreased sensation to touch in the left foot, limited dorsi and plantar flexion] Neuro: [decreased sensation to touch of the left lower extremity] Psych: [Alert], [oriented], [appropriate affect] - Labs CBC & Chem 7: 09/05/18 07:40 09/04/18 08:35 Labs: Abnormal Lab Results - Last 24 Hours (Table) 09/05/18 09/05/18 09/06/18 Range/Units 16:05 20:11 06:51 POC Glucose (mg/dL) 210 H 219 H 110 H (75-99) mg/dL 09/06/18 Range/Units 11:38 POC Glucose (mg/dL) 138 H (75-99) mg/dL Assessment and Plan Assessment: Assessment and Plan Leukocytosis Diabetes mellitus Hypothyroidism Depression Left hip osteoarthritis status post left total hip replacement POD 0 WBC count 13.2. Plan: Likely reactive. No signs of infection. Daily CBC. Logwy-jo-cndc glucose 138. Plans: Insulin sliding scale. Regular Accu-Cheks. Hypoglycemic precautions. Plans: Continue Synthroid. Plans: Continue Lexapro. Management as per orthopedic surgery. Adequate pain management. Follow PT and OT recommendations. AFO boot ordered for L foot drop. Thank you for this consult. Please call with any additional questions or concerns. Plans for rehab DC tomorrow.
[2018-09-06 16:35] LABS: Glucose,Whole Blood 238 mg/dL (75-99)
[2018-09-06] MEDS: ATORVASTATIN 10 MG TAB PO SCH (19:34)
[2018-09-06] MEDS: SENNOSIDES-DOCUSATE SODIUM 1 EACH TAB PO SCH (19:34)
[2018-09-06 19:43] LABS: Glucose,Whole Blood 147 mg/dL (75-99)
[2018-09-07] MEDS: HYDROcodone/APAP 5-325MG 1 EACH TAB PO PRN ×3 (03:39→14:34)
[2018-09-07] MEDS: LACTATED RINGERS 1,000 ML IV SCH (04:59)
[2018-09-07] MEDS: LEVOTHYROXINE 125 MCG TAB PO SCH (06:23)
[2018-09-07 07:01] LABS: Glucose,Whole Blood 135 mg/dL (75-99)
[2018-09-07 07:43] LABS: Basophils % (A) 0 %; Eosinophils # (A) 0.4 k/uL (0-0.7); Eosinophils % (A) 4 %; HCT 31.4 % (34.0-46.0); HGB 9.7 gm/dL (11.4-16.0); Hypochromasia Slight; Lymphocytes # (A) 1.1 k/uL (1.0-4.8); Lymphocytes % (A) 13 %; MCH 28.7 pg (25.0-35.0); MCV 92.4 fL (80.0-100.0); Mean Platelet Volume 7.7; Monocytes # (A) 0.5 k/uL (0-1.0); Monocytes % (A) 5 %; Neutrophils # (A) 6.8 k/uL (1.3-7.7); Neutrophils % (A) 77 %; Platelet Count 255 k/uL (150-450); RDW 14.1 % (11.5-15.5); WBC 8.8 k/uL (3.8-10.6)
--- NOTE | 2018-09-07 08:21 | P.DS ---
Providers Date of admission: 09/04/18 07:00 Expected date of discharge: 09/07/18 Attending physician: Bryce Rodriguez Consults: 09/04/18 08:48 Consult Physician Routine Consulting Provider: Christie Barrera Consult Reason/Comments: medical management Do you want consulting provider notified?: Yes Primary care physician: Tanna Alvarez MD - Discharge Diagnosis(es) (1) Osteoarthritis of left hip Current Visit: Yes Status: Acute (2) Status post total hip replacement, left Current Visit: Yes Status: Acute Hospital Course: This is a 57-year-old female with known history of degenerative arthritis of the left hip. The patient presents for evaluation. After discussion and consideration patient elects to proceed with total hip arthroplasty. The patient is seen preoperatively by Dr. Rodriguez and medically cleared for surgery by their primary care physician. Patient is admitted to [facility] on 09/04/2018 for total hip arthroplasty. The procedures performed without complication or sequelae. The patient is doing well postoperatively. Labs and vital signs are stable on day of discharge. Patient did develop issues with numbness in the left foot and difficulty with dorsiflexion of the left foot and ankle. Patient's active range of motion is improving, but patient still complains of some numbness. An AFO is ordered for the patient. Patient has been able to ambulate with physical therapy. On day of discharge patient's hip incision is healing well. There is minimal erythema. There is no drainage noted at this time. There is minimal soft tissue swelling to the hip and thigh. Patient has good range of motion of the left foot and ankle without pain or difficulty. There is some decreased sensation to the bottom of the left foot and over the first dorsal webspace. Calf is soft and nontender to palpation. The left lower extremity is warm and well perfused. Patient is discharged to rehab in good condition. Opioid start talking form is reviewed and signed at patient bedside. Please see med rec for accurate list of home medications. Plan - Discharge Summary Discharge Rx Participant: Yes New Discharge Prescriptions: New Aspirin 325 mg PO BID #60 tab HYDROcodone/APAP 5-325MG [[place] 5-325] 1 - 2 tab PO Q6HR PRN #56 tab PRN Reason: Pain Sennosides [Senokot] 1 tab PO BID #60 tablet No Action Loratadine [Claritin] 10 mg PO DAILY Ibuprofen [Motrin] 800 mg PO Q8HR PRN PRN Reason: Pain metFORMIN HCL 1,000 mg PO BID Atorvastatin [Lipitor] 10 mg PO HS glipiZIDE [Glucotrol] 5 mg PO AC-BID Escitalopram Oxalate [Lexapro] 10 mg PO DAILY Aspirin [Adult Low Dose Aspirin EC] 81 mg PO DAILY Levothyroxine Sodium [Synthroid] 125 mcg PO DAILY Discharge Medication List Ibuprofen [Motrin] 800 mg PO Q8HR PRN 02/24/14 [History] Loratadine [Claritin] 10 mg PO DAILY 02/24/14 [History] Atorvastatin [Lipitor] 10 mg PO HS 01/30/17 [History] metFORMIN HCL 1,000 mg PO BID 01/30/17 [History] Aspirin [Adult Low Dose Aspirin EC] 81 mg PO DAILY 08/27/18 [History] Escitalopram Oxalate [Lexapro] 10 mg PO DAILY 08/27/18 [History] glipiZIDE [Glucotrol] 5 mg PO AC-BID 08/27/18 [History] Levothyroxine Sodium [Synthroid] 125 mcg PO DAILY 09/04/18 [History] Aspirin 325 mg PO BID #60 tab 09/07/18 [Rx] HYDROcodone/APAP 5-325MG [[place] 5-325] 1 - 2 tab PO Q6HR PRN #56 tab 09/07/18 [Rx] Sennosides [Senokot] 1 tab PO BID #60 tablet 09/07/18 [Rx] Follow up Appointment(s)/Referral(s): Hedy Ceballos [NON-STAFF] - Bryce Rodriguez DO [Doctor of Osteopathic Medicine] - 2 Weeks Activity/Diet/Wound Care/Special Instructions: Lissy will deliver AFO Brace to the bedside on 09/06/18. Weightbearing as tolerated with walker. AFO to the left lower extremity when ambulating. Leave dressing intact. Dressing may be removed by home care nurse or by patient in 10 days. May shower with dressing on. Please follow-up with [facility] in 2 weeks and call with any questions or concerns, . Discharge Disposition: HOME WITH HOME HEALTH SERVICES
[2018-09-07] MEDS: ASPIRIN 325 MG TAB PO SCH (08:52)
[2018-09-07] MEDS: ESCITALOPRAM 10 MG TAB PO SCH (08:52)
[2018-09-07] MEDS: INSULIN ASPART (NovoLOG) 100 UNIT/ML VIAL SQ SCH ×2 (08:53→12:05)
[2018-09-07] MEDS: MELOXICAM 7.5 MG TAB PO SCH (08:53)
[2018-09-07] MEDS: LORATADINE 10 MG TAB PO SCH (08:53)
[2018-09-07] MEDS: SODIUM CHLORIDE 0.9% 1,000 ML IV SCH (10:08)
[2018-09-07 11:47] LABS: Glucose,Whole Blood 113 mg/dL (75-99)
[2018-09-07 15:33] VITALS: BP 113/73; PULSE 73; RESP 15; TEMP 97.7
== END 2018-09-07 16:58 | disposition home health service (06) | DRG 470 ==
LOC: 2ORMAIN 07:00 → 4SSUR 11:01
PROVIDERS: ADMIT Orthopaedic Surgery; ATTEND Orthopaedic Surgery
PROC: 0SRD06Z Replacement of Left Knee Joint with Oxidized Zirconium on Polyethylene Synthetic Substitute, Open Approach (ICD-10-PCS; principal; 2018-09-04 09:10)
DX: M16.12 Unilateral primary osteoarthritis, left hip (principal); Z68.41 Body mass index [BMI] 40.0-44.9, adult; N28.9 Disorder of kidney and ureter, unspecified; E03.9 Hypothyroidism, unspecified; E78.5 Hyperlipidemia, unspecified; F32.9 Major depressive disorder, single episode, unspecified; H91.90 Unspecified hearing loss, unspecified ear; F41.9 Anxiety disorder, unspecified; L65.9 Nonscarring hair loss, unspecified; E11.22 Type 2 diabetes mellitus with diabetic chronic kidney disease; E66.01 Morbid (severe) obesity due to excess calories; E11.319 Type 2 diabetes mellitus with unspecified diabetic retinopathy without macular edema; N18.3 Chronic kidney disease, stage 3 (moderate); Z87.442 Personal history of urinary calculi; Z98.890 Other specified postprocedural states; Z90.49 Acquired absence of other specified parts of digestive tract; Z79.82 Long term (current) use of aspirin; Z79.899 Other long term (current) drug therapy; Z79.84 Long term (current) use of oral hypoglycemic drugs; Z79.890 Hormone replacement therapy; Z83.3 Family history of diabetes mellitus; Z80.1 Family history of malignant neoplasm of trachea, bronchus and lung; Z82.5 Family history of asthma and other chronic lower respiratory diseases; Z81.8 Family history of other mental and behavioral disorders
CPT/HCPCS: 73501; 84132; 85025; 86850; 86891; 86900; 86901; 88300

== ENCOUNTER → 2018-11-15 | Outpatient (CLI) | payer MEDICARE, OTHER | END | disposition home or self-care (01) | LOC: LABWHC1 09:02 | PROVIDERS: ATTEND Physician Assistant Medical | DX: L65.9 Nonscarring hair loss, unspecified (principal) | CPT/HCPCS: 36415; 84132 ==

== ENCOUNTER → 2019-05-22 | Outpatient (CLI) | payer MEDICARE, OTHER ==
--- NOTE | 2019-05-22 09:34 | US ---
EXAMINATION TYPE: US kidneys/renal and bladder DATE OF EXAM: 05/22/2019 COMPARISON: US 05/10/2014 CLINICAL HISTORY: N18.3 Chronic kidney disease Stage 3. diabetic, prior renal stones bilaterally with surgery to remove stone(s) right kidney. EXAM MEASUREMENTS: Right Kidney: 5.8 x 5.0 x 2.6 cm Left Kidney: 10.6 x 5.9 x 5.2 cm Post Void Residual Volume: 0 mL, bladder appears empty Right Kidney: small for size; multiple cortical renal cysts with largest at superior/mid pole = 10. 1 x 9.2 x 7.1cm; cluster of shadowing stones seen in lower pole =1.7 x 1.1 x 0.9cm Left Kidney: lower pole small calcifications seen with posterior shadowing noted = 0.6 x 0.4 x 0.2cm Bladder: wnl, partially distended as seen Bilateral Jets seen: ureteral jets not seen after 3 minutes Normal Post Void Residual: yes IMPRESSION: 1. Severe right renal atrophy and multiple large cortical renal cysts. The largest on the right measu res up to 10.1 cm. 2. Cluster of nonobstructing right renal calculi measuring up to 1.1 cm. 3. Nonobstructing left lower pole renal calculus measuring 0.6 cm.
== END | disposition home or self-care (01) ==
LOC: RADUSWWP 08:32
PROVIDERS: ATTEND Family Medicine
DX: N28.1 Cyst of kidney, acquired (principal); N26.1 Atrophy of kidney (terminal); N20.0 Calculus of kidney
CPT/HCPCS: 76770

== ENCOUNTER 2019-09-16 23:42 | Emergency (ER) | payer MEDICARE, OTHER ==
[2019-09-16 23:59] VITALS: BP 130/77; PULSE 82; RESP 18; TEMP 98.1
[2019-09-17] MEDS ORDERED: ACETAMINOPHEN TAB 500 MG TAB PO STA (00:55)
[2019-09-17] MEDS ORDERED: IBUPROFEN 600 MG TAB PO STA (00:55)
--- NOTE | 2019-09-17 00:56 | ED ---
Extremity Problem HPI - General Chief complaint: Extremity Problem,Nontraumatic Stated complaint: R Foot Pain Time Seen by Provider: 09/17/19 00:00 Source: patient, RN notes reviewed, old records reviewed Mode of arrival: wheelchair Limitations: no limitations - History of Present Illness Initial comments: This is a 58-year-old female DF for evaluation patient steps of her therefore poor story Maik at bedside does do sign language is able to help with her. Patient complaining of right foot pain with no triadic injury. Pain is worse in the morning worse when she is walking out of. MD Complaint: extremity pain, extremity swelling, other (Foot pain) Location: right Radiation: none Severity scale (1-10): 7 Quality: aching Consistency: constant Worsens with: weight bearing, walking Associated Symptoms: denies other symptoms - Related Data Home Medications Medication Instructions Recorded Confirmed Loratadine [Claritin] 10 mg PO DAILY 02/24/14 09/04/18 Atorvastatin [Lipitor] 10 mg PO HS 01/30/17 09/04/18 metFORMIN HCL 1,000 mg PO BID 01/30/17 09/04/18 Escitalopram Oxalate [Lexapro] 10 mg PO DAILY 08/27/18 09/04/18 glipiZIDE [Glucotrol] 5 mg PO AC-BID 08/27/18 09/04/18 Levothyroxine Sodium [Synthroid] 125 mcg PO DAILY 09/04/18 09/04/18 Previous Rx's Medication Instructions Recorded Aspirin 325 mg PO BID tab 09/07/18 Aspirin 325 mg PO BID #60 tab 09/07/18 HYDROcodone/APAP 5-325MG [Pharr 1 - 2 tab PO Q6HR PRN #56 tab 09/07/18 5-325] HYDROcodone/APAP 5-325MG [Pharr 1 each PO Q6HR PRN tab 09/07/18 5-325] Sennosides [Senokot] 1 tab PO BID #60 tablet 09/07/18 Sennosides-Docusate Sodium 2 each PO HS tab 09/07/18 [Senokot-S] Allergies Allergy/AdvReac Type Severity Reaction Status Date / Time No Known Allergies Allergy Verified 09/04/18 10:15 Review of Systems ROS Statement: Those systems with pertinent positive or pertinent negative responses have been documented in the HPI. ROS Other: All systems not noted in ROS Statement are negative. Past Medical History Past Medical History: Diabetes Mellitus, Hyperlipidemia, Thyroid Disorder Additional Past Medical History / Comment(s): DEAF, KIDNEY STONE HISTORY History of Any Multi-Drug Resistant Organisms: None Reported Past Surgical History: Cholecystectomy, Orthopedic Surgery Additional Past Surgical History / Comment(s): RT elbow SX Past Anesthesia/Blood Transfusion Reactions: No Reported Reaction Additional Past Anesthesia/Blood Transfusion Reaction / Comment(s): REQUESTS TO BE AWAKENED GENTLY Past Psychological History: No Psychological Hx Reported Smoking Status: Never smoker Past Alcohol Use History: None Reported Past Drug Use History: None Reported - Past Family History Mother History Unknown: Yes Additional Family Medical History / Comment(s): DOESN'T KNOW FAMILY HX General Exam - General Exam Comments Initial Comments: Right foot pain and tenderness Limitations: no limitations General appearance: alert, in no apparent distress Head exam: Present: atraumatic, normocephalic, normal inspection Eye exam: Present: normal appearance, PERRL, EOMI. Absent: scleral icterus, conjunctival injection, periorbital swelling ENT exam: Present: normal exam, mucous membranes moist Neck exam: Present: normal inspection. Absent: tenderness, meningismus, lymphadenopathy Respiratory exam: Present: normal lung sounds bilaterally. Absent: respiratory distress, wheezes, rales, rhonchi, stridor Cardiovascular Exam: Present: regular rate, normal rhythm, normal heart sounds. Absent: systolic murmur, diastolic murmur, rubs, gallop, clicks GI/Abdominal exam: Present: soft, normal bowel sounds. Absent: distended, tenderness, guarding, rebound, rigid Extremities exam: Present: normal inspection, full ROM, normal capillary refill. Absent: tenderness, pedal edema, joint swelling, calf tenderness Back exam: Present: normal inspection Neurological exam: Present: alert, oriented X3, CN II-XII intact Psychiatric exam: Present: normal affect, normal mood Skin exam: Present: warm, dry, intact, normal color. Absent: rash Course Vital Signs 09/16/19 23:49 Temperature 98.1 F Pulse Rate 82 Respiratory 18 Rate Blood Pressure 130/77 O2 Sat by Pulse 96 Oximetry Medical Decision Making - Medical Decision Making 58 female DF for evaluation of right foot pain. Symptoms likely plantar fasciitis in nature and patient can be discharged home - Radiology Data Radiology results: report reviewed (X-ray right foot is negative for acute disease), image reviewed Disposition Clinical Impression: Plantar fasciitis, right Disposition: HOME SELF-CARE Condition: Good Instructions (If sedation given, give patient instructions): Plantar Fasciitis (ED) Is patient prescribed a controlled substance at d/c from ED?: No Referrals: Carlos Mckeon [Primary Care Provider] - 1-2 days
--- NOTE | 2019-09-17 01:13 | XR ---
EXAMINATION TYPE: XR foot complete RT DATE OF EXAM: 09/17/2019 COMPARISON: NONE HISTORY: Right foot pain TECHNIQUE: 3 views FINDINGS: There is plantar calcaneal spurring. Metatarsals are intact. I see no fracture nor dislocat ion. Joint spaces are normal. IMPRESSION: Calcaneal spurring. No fracture seen.
== END 2019-09-17 01:39 | disposition home or self-care (01) ==
LOC: EC 23:42
DX: M72.2 Plantar fascial fibromatosis (principal); E11.9 Type 2 diabetes mellitus without complications; E78.5 Hyperlipidemia, unspecified; E07.9 Disorder of thyroid, unspecified; Z79.84 Long term (current) use of oral hypoglycemic drugs; Z79.890 Hormone replacement therapy; Z79.899 Other long term (current) drug therapy
CPT/HCPCS: 99284

== ENCOUNTER → 2019-10-22 | Outpatient (CLI) | payer MEDICARE, OTHER ==
--- NOTE | 2019-10-22 13:04 | XR ---
EXAMINATION TYPE: XR lumbosacral spine min 4V DATE OF EXAM: 10/22/2019 CLINICAL HISTORY: pain COMPARISON: NONE TECHNIQUE: Frontal, lateral, and oblique images of the lumbar spine are obtained. FINDINGS: Severe degenerative change at L5-S1 with vacuum disc. Grade 2 anterolisthesis measuring L5 on S1 with bilateral spondylolysis. Mild degenerative narrowing noted at the remaining levels. Large calcified mass in the region of the right kidney may reflect a calcified cyst. There is also probable nephrolithiasis right kidney measuring IMPRESSION: Severe degenerative disc disease and grade 2 anterolisthesis L5 on S1.
== END | disposition home or self-care (01) ==
LOC: RADXRMAIN 12:36
PROVIDERS: ATTEND Family Medicine
DX: M51.37 Other intervertebral disc degeneration, lumbosacral region (principal); M43.16 Spondylolisthesis, lumbar region
CPT/HCPCS: 72110

== ENCOUNTER → 2019-10-30 | Outpatient (CLI) | payer MEDICARE, OTHER ==
--- NOTE | 2019-10-30 11:11 | CT ---
EXAMINATION TYPE: CT abdomen pelvis wo con DATE OF EXAM: 10/30/2019 COMPARISON: CT 10/23/2008 HISTORY: follow up renal stone CT DLP: 1108.6 mGycm Automated exposure control for dose reduction was used. TECHNIQUE: Helical acquisition of images from the lung bases through the pelvis. FINDINGS: There is an anterior abdominal wall hernia containing fat. Is noted in the midline at the u mbilical location. Small hiatal hernia noted. LUNG BASES: No significant abnormality is appreciated. AORTA: No significant abnormality is appreciated. LIVER/GB: Patient is post cholecystectomy. The liver is enlarged. Liver shows low attenuation. PANCREAS: No significant abnormality is seen. SPLEEN: No significant abnormality is seen. ADRENALS: No significant abnormality is seen. KIDNEYS: The perinephric fluid collection seen likely representing subcapsular hematoma about the rig ht kidney measures approximately 12 cm in AP dimension by 5.8 cm in transverse dimension by 10 cm in cephalad to caudal dimension and shows peripheral calcification. The lower pole renal calculi on the right measure approximately 16 mm x 8 mm x 2.5 cm, smaller calcification is present anteriorly measur ing 12 mm x 5 mm x 6 mm, punctate calcification is parenchymal at the lower pole. The left kidney kacie ws a lower pole calculus measuring approximately 5 mm.. REPRODUCTIVE ORGANS: Calcification is present at the fundus of the uterus measuring 10 mm.. URINARY BLADDER: No significant abnormality is seen. BOWEL: No significant abnormality is seen. FREE AIR: No Free Air is visible. ASCITES: None visible. PELVIC ADENOPATHY: None visualized. RETROPERITONEAL ADENOPATHY: No Retroperitoneal Adenopathy visible. OSSEOUS STRUCTURES: There is streak artifact from patient's left hip prosthesis. Bilateral spondylol ysis present at L5, there is anterolisthesis grade 1 L5-S1 with associated loss of disc height, vacuu m phenomenon. IMPRESSION: BILATERAL NEPHROLITHIASIS IS NONOBSTRUCTIVE. ADDITIONAL CHANGES WITHIN THE RIGHT KIDNEY DESCRIBED. HEPATOMEGALY AND HEPATIC STEATOSIS. SMALL HIATAL HERNIA. POSTOP CHANGES. ABDOMINAL WALL HERNIA. LUDY TIONAL FINDINGS ABOVE..
== END | disposition home or self-care (01) ==
LOC: RADCTMAIN 07:50
PROVIDERS: ATTEND Urology
DX: N20.0 Calculus of kidney (principal); K43.9 Ventral hernia without obstruction or gangrene; K44.9 Diaphragmatic hernia without obstruction or gangrene; K76.0 Fatty (change of) liver, not elsewhere classified; Z98.890 Other specified postprocedural states
CPT/HCPCS: 74176

== ENCOUNTER → 2019-11-15 | Outpatient (CLI) | payer MEDICARE, OTHER ==
--- NOTE | 2019-11-15 13:25 | CT ---
EXAMINATION TYPE: CT lumbar spine wo con DATE OF EXAM: 11/15/2019 COMPARISON: None HISTORY: Low back pain, left foot involved CT DLP: 2068.3 mGycm CONTRAST: None TECHNIQUE: CT of the lumbar spine is performed on a spiral scan at 3 mm thick sections. Reconstructed images are performed in the coronal and sagittal planes. FINDINGS: There is a calcified cyst on the posterior superior left kidney. Large calcifications are w ithin the inferior pole renal collecting system. T12-L1: No focal disc herniation or significant disc bulge is evident. No spinal canal stenosis or neural foraminal stenosis is present. L1-L2: No focal disc herniation or significant disc bulge is evident. No spinal canal stenosis or n eural foraminal stenosis is present L2-L3: No focal disc herniation or significant disc bulge is evident. No spinal canal stenosis or n eural foraminal stenosis is present L3-L4: No focal disc herniation or significant disc bulge is evident. No spinal canal stenosis or n eural foraminal stenosis is present L4-L5: No focal disc herniation or significant disc bulge is evident. No spinal canal stenosis or n eural foraminal stenosis is present L5-S1: Spondylolysis of L5 is present. No spinal canal stenosis is present. There is loss of disc hei ght. Disc uncovering is present. No AP spinal canal stenosis is present. There is near complete loss of the right foramen. There are severe foraminal stenosis due to disc bulging at the left foramen. Th ere is a grade 2 spondylolisthesis of L4 anterior and L5 Vertebral alignment otherwise appears normal. IMPRESSION: Grade 2 spondylolisthesis of L5 anterior on S1. Disc uncovering is causing severe left and near compl ete obliteration of the right foramen. Spondylolysis of L5 is evident.
== END | disposition home or self-care (01) ==
LOC: RADCTMAIN 06:29
PROVIDERS: ATTEND Physical Medicine & Rehabilitation
DX: M48.062 Spinal stenosis, lumbar region with neurogenic claudication (principal); M43.16 Spondylolisthesis, lumbar region; M47.817 Spondylosis without myelopathy or radiculopathy, lumbosacral region; M54.5 Low back pain; M54.16 Radiculopathy, lumbar region; N18.3 Chronic kidney disease, stage 3 (moderate)
CPT/HCPCS: 72131

== ENCOUNTER → 2019-11-26 | Outpatient (CLI) | payer MEDICARE, OTHER ==
[2019-11-26 08:11] LABS: Appearance,Urine Clear (Clear); Bilirubin,Urine Negative (Negative); Blood,Urine Negative (Negative); Color,Urine Colorless; Glucose,Urine (UA) Negative (Negative); Ketones,Urine Negative (Negative); Leukocyte Esterase,Urine Negative (Negative); Nitrite,Urine Negative (Negative); Protein,Urine Negative (Negative); Specific Gravity,Urine 1.007 (1.001-1.035); Urobilinogen,Urine <2.0 mg/dL (<2.0)
[2019-11-26 08:23] LABS: Basophils # (A) 0.1 k/uL (0-0.2); Basophils % (A) 1 %; Eosinophils # (A) 0.4 k/uL (0-0.7); Eosinophils % (A) 4 %; HCT 38.6 % (34.0-46.0); HGB 11.8 gm/dL (11.4-16.0); Hypochromasia Slight; Lymphocytes % (A) 9 %; MCH 28.4 pg (25.0-35.0); MCHC 30.7 g/dL (31.0-37.0); MCV 92.7 fL (80.0-100.0); Mean Platelet Volume 7.7; Monocytes # (A) 0.5 k/uL (0-1.0); Monocytes % (A) 5 %; Neutrophils # (A) 8.8 k/uL (1.3-7.7); Neutrophils % (A) 80 %; Platelet Count 310 k/uL (150-450); RBC 4.17 m/uL (3.80-5.40); RDW 14.7 % (11.5-15.5)
[2019-11-26 08:51] LABS: Calcium 9.5 mg/dL (8.4-10.2); Potassium 5.5 mmol/L (3.5-5.1)
== END | disposition home or self-care (01) ==
LOC: LABPAT 07:24
PROVIDERS: ATTEND Urology
DX: Z01.818 Encounter for other preprocedural examination (principal); N20.0 Calculus of kidney; R31.29 Other microscopic hematuria
CPT/HCPCS: 36415; 80048; 81003; 85025; 87086

== ENCOUNTER → 2019-11-27 | Outpatient (CLI) | payer MEDICARE, OTHER | END | disposition home or self-care (01) | LOC: LABPAT 07:02 | PROVIDERS: ATTEND Urology | DX: Z01.818 Encounter for other preprocedural examination (principal) | CPT/HCPCS: 93005 ==

== ENCOUNTER 2019-12-02 08:24 | Day surgery (SDC) | payer MEDICARE, OTHER ==
[2019-11-21 09:03] VITALS: BMI 49.1
--- NOTE | 2019-12-02 07:27 | P.HPIHPCON ---
History of Present Illness H&P Date: 12/02/19 Chief Complaint: right renal calculi Ms Sanchez is a 59 yo female with hx of partial staghorn calculi. She is symptomatic from her stone. , I discussed the option of PCNL, ESWL and ureteroscopy with her. She agreed to proceed with ureteroscopy, she understood given the size of the stone, this will be a staged procedure she would require a minumum of two cases possibily three and there is potential that some of lower pole stone will not be reached using the ureteroscope. Discussed with him risk which includes but no limited to bleeding, infection and ureteral perforation. Also discussed with him risk from anesthesia. She understood all risk and agreed to proceed with right sided ureteroscopy, holmium laser lithotripsy and stone basketting Consent for Procedure: I have explained the operation/procedure to the patient, including the risks, b enefits, side effects, alternative therapies (including not receiving the proposed treatment or service), the likelihood of the patient achieving his/her goals, and potential recuperation problems for the procedure/sedation/analgesia, as well as any blood products, if indicated. I also explained to the patient the risks, benefits and side effects of the alternatives, as well as the risks related to not receiving the proposed procedure, care, treatment, or services. - Constitutional Constitutional: Denies chills, Denies fever - Cardiovascular Cardiovascular: Denies chest pain, Denies shortness of breath - Respiratory Respiratory: Denies cough, Denies 7 - Gastrointestinal Gastrointestinal: Denies abdominal pain, Denies diarrhea, Denies nausea, Denies vomiting Past Medical History Past Medical History: Diabetes Mellitus, Hyperlipidemia, Thyroid Disorder Additional Past Medical History / Comment(s): DEAF, KIDNEY STONE HISTORY History of Any Multi-Drug Resistant Organisms: None Reported Past Surgical History: Cholecystectomy, Joint Replacement, Orthopedic Surgery Additional Past Surgical History / Comment(s): RT elbow SX,lt hip caused spur Past Anesthesia/Blood Transfusion Reactions: No Reported Reaction Additional Past Anesthesia/Blood Transfusion Reaction / Comment(s): REQUESTS TO BE AWAKENED GENTLY Smoking Status: Never smoker - Past Family History Mother History Unknown: Yes Additional Family Medical History / Comment(s): DOESN'T KNOW FAMILY HX Father Family Medical History: Cancer Medications and Allergies Home Medications Medication Instructions Recorded Confirmed Type Atorvastatin [Lipitor] 10 mg PO HS 01/30/17 11/21/19 History metFORMIN HCL 1,000 mg PO BID 01/30/17 11/21/19 History Escitalopram Oxalate [Lexapro] 10 mg PO DAILY 08/27/18 11/21/19 History glipiZIDE [Glucotrol] 5 mg PO AC-BID 08/27/18 11/21/19 History Levothyroxine Sodium [Synthroid] 125 mcg PO DAILY 09/04/18 11/21/19 History Aspirin 325 mg PO BID #60 tab 09/07/18 11/21/19 Rx Cholecalciferol [Vitamin D3 (25 1,000 unit PO DAILY 11/21/19 11/21/19 History Mcg = 1000 Iu)] Allergies Allergy/AdvReac Type Severity Reaction Status Date / Time No Known Allergies Allergy Verified 11/21/19 08:37 Surgical - Exam - General well developed, well nourished, no distress, no pain - Eyes PERRL, normal ocular movement - Respiratory normal expansion, normal respiratory effort - Abdomen Abdomen: soft, non tender - Psychiatric oriented to time, oriented to person, oriented to place Assessment and Plan Assessment: 59 yo female with right sided partial staghorn -OR for staged right sided ureteroscopy, holmium laser lithotripsy and stone basketting
[~2019-12-02 08:24] MED LIST changes: +DEXAMETHASONE SOD PHOSPHATE 10 MG/ML 1 ML VIAL IV ONE; +GENTAMICIN 120 MG in SODIUM CHLORIDE 0.9% 100 ML IVPB ONE; -HYDROmorphone 0.5 MG/0.5 ML SYRINGE IVP PRN; -LIDOCAINE 1% 20 ML VIAL (10MG/ML) FOR IV START INTRADERMA PRN; -MIDAZOLAM 2 MG/2 ML VIAL IV PRN; -ROPIVACAINE 246.25 MG, EPINEPHrine 0.5 MG, KETOROLAC 30 MG, cloNIDine HCL/PF 80 MCG, WA... MISCELLANE ONE; -SCOPOLAMINE 1.5MG/72HR PATCH TRANSDERM ONE; -TRANEXAMIC ACID 1,000 MG in SODIUM CHLORIDE 0.9% 100 ML IVPB ONE; -ceFAZolin IN SWFI 2 GM/20 ML SYRINGE IVP ONE
--- NOTE | 2019-12-02 08:58 | XR ---
EXAMINATION TYPE: XR KUB DATE OF EXAM: 12/02/2019 8:36 AM CLINICAL HISTORY: Right-sided kidney stone TECHNIQUE: Two supine KUB images of the abdomen are obtained. COMPARISON: CT October 30, 2019 FINDINGS: There is redemonstration of a dominant 2.5 cm right renal calculus lower pole right kidney at inferior L3 level. Superior and lateral to this there are large thin calcified cystic lesion or le sions redemonstrated. Stable 5 mm lower pole left renal calculus that inferior L2 level. Cholecystectomy clips redemonstrated. Partial visualization of metallic hardware from left hip arthro plasty redemonstrated. Overall nonobstructive bowel gas pattern. Visualized osseous structures are in tact. IMPRESSION: As above.
[2019-12-02] MEDS: LACTATED RINGERS 1,000 ML IV SCH ×2 (09:43→10:30)
[2019-12-02] MEDS ORDERED: LIDOCAINE 1% (10MG/ML) FOR IV START INTRADERMA ONE (09:43)
[2019-12-02 09:44] LABS: Glucose,Whole Blood 154 mg/dL (75-99)
[2019-12-02] MEDS ORDERED: NEOSTIGMINE 1 MG/ML 10 ML VIAL ONE (10:34)
[2019-12-02] MEDS ORDERED: GLYCOPYRROLATE 0.2 MG/ML 2 ML VIAL ONE (10:34)
[2019-12-02] MEDS ORDERED: MIDAZOLAM 2 MG/2 ML VIAL ONE (10:34)
[2019-12-02] MEDS ORDERED: ROCURONIUM BROMIDE 10 MG/ML 5 ML VIAL IV ONE (10:34)
[2019-12-02] MEDS ORDERED: PHENYLEPHRINE-0.9% NACL SYG 1 MG/10 ML SYRINGE ONE (10:34)
[2019-12-02] MEDS ORDERED: fentaNYL (PF) 50 MCG/ML 2 ML AMP ONE (10:34)
[2019-12-02] MEDS ORDERED: PROPOFOL 10 MG/ML 20 ML VIAL IV ONE (10:34)
[2019-12-02] MEDS ORDERED: LIDOCAINE 1% INJ 10MG/ML (20 ML MDV) ONE (10:34)
[2019-12-02] MEDS ORDERED: IOPAMIDOL-370 50ML BTL IRRIGATION ONE (11:05)
--- NOTE | 2019-12-02 11:46 | P.OP ---
Date of Procedure: 12/02/19 Preoperative Diagnosis: rigth sided renal stone Postoperative Diagnosis: right sided ureteral stone, ureteral narrowing Procedure(s) Performed: Cystoscopy, right retrograde pyelogram, ureteroscopy and stent placement Implants: 6 Fr X 22 cm stent Anesthesia: KLAUS Surgeon: Kwesi Mariscal Estimated Blood Loss (ml): 5 Pathology: none sent Condition: stable Disposition: PACU Indications for Procedure: Ms Sanchez is a 59 yo female with hx of partial staghorn calculi. She is symptomatic from her stone. , I discussed the option of PCNL, ESWL and ureteroscopy with her. She agreed to proceed with ureteroscopy, she understood given the size of the stone, this will be a staged procedure she would require a minumum of two cases possibily three and there is potential that some of lower pole stone will not be reached using the ureteroscope. Discussed with him risk which includes but no limited to bleeding, infection and ureteral perforation. Also discussed with him risk from anesthesia. She understood all risk and agreed to proceed with right sided ureteroscopy, holmium laser lithotripsy and stone basketting Operative Findings: Right-sided proximal ureter narrowing/tortuosity Description of Procedure: Patient was brought to the operating room, general anesthesia was induced. She was prepped and draped in sufficient was in a dorsal lithotomy position. Cystoscopy fitted with 21-Gabonese sheath was inserted per urethra. Cystoscopy was performed showed no abnormality within the bladder. Attention was then carried to the right ureteral orifice was intubated with a 4-Gabonese open-ended catheter retrograde pyelogram was performed which showed no filling defect along the course of the ureter, but of note she had a tortures and narrowed proximal ureter. Next a sensor wire was advanced through the cystoscope and into the renal pelvis. Next under fluoroscopy 05-33-[id number] access sheath was passed over the wire and distal to the area of narrowing. Next the flexible ureteroscope was inserted through the access sheath. multiple attempts were used to advance the ureteroscope past the narrowing, but patient had severe narrowing and the ureterscope could not be advanced. Next a sensor wire was advanced through the scope. Pullback ureteroscopy was performed showed no injury to ureter or any ureteral stones. Next a 6-Gabonese by 22 cm stent was passed over the wire, the proximal curl which was on fluoroscopy and distal curl was visualized using the cystoscope. The bladder was emptied and the case. The patient was extubated and taken to PACU in stable condition
[2019-12-02 11:56] VITALS: TEMP 98.7
--- NOTE | 2019-12-02 12:04 | FL ---
EXAMINATION TYPE: FL cystogram DATE OF EXAM: 12/02/2019 COMPARISON: Same day abdominal x-ray. HISTORY: Right-sided kidney stone. TECHNIQUE: Fluoroscopy. FINDINGS: Fluoroscopic guidance was provided during treatment for right kidney stone with ureter tomás nt placement procedure performed by Dr. Garces. A total of 6 seconds of fluoroscopic time was utiliz ed during the procedure and two spot fluoroscopic intraoperative images are acquired. Images saved re demonstrate large lower pole right renal calculus and adjacent rim calcified cystic lesions. IMPRESSION: As Above.
[2019-12-02] MEDS: HYDROmorphone 0.5 MG/0.5 ML SYRINGE IVP PRN ×2 (12:25→12:36)
[2019-12-02] MEDS ORDERED: KETOROLAC 15 MG/ML 1 ML VIAL IVP ONE (12:27)
[2019-12-02] MEDS ORDERED: LACTATED RINGERS 1,000 ML IV ONE (12:53)
[2019-12-02 13:02] VITALS: RESP 16
[2019-12-02 13:27] VITALS: BP 109/60; PULSE 83
== END 2019-12-02 13:53 | disposition home or self-care (01) ==
LOC: OR 08:24
PROVIDERS: ATTEND Urology
DX: N20.1 Calculus of ureter (principal); N13.5 Crossing vessel and stricture of ureter without hydronephrosis; E11.9 Type 2 diabetes mellitus without complications; E07.9 Disorder of thyroid, unspecified; E78.5 Hyperlipidemia, unspecified; I10 Essential (primary) hypertension; F32.9 Major depressive disorder, single episode, unspecified; E66.01 Morbid (severe) obesity due to excess calories; Z68.42 Body mass index [BMI] 45.0-49.9, adult; H91.90 Unspecified hearing loss, unspecified ear; Z87.442 Personal history of urinary calculi; Z90.49 Acquired absence of other specified parts of digestive tract; Z98.890 Other specified postprocedural states; Z80.9 Family history of malignant neoplasm, unspecified; Z79.84 Long term (current) use of oral hypoglycemic drugs; Z79.82 Long term (current) use of aspirin; Z79.890 Hormone replacement therapy; Z79.899 Other long term (current) drug therapy
CPT/HCPCS: 84132; 74430; 74018; 52332; C2625; C1758; C1769; J2250; J1100; J2710; J0690; J2405; J2001; J3010; J1885; J2370; J2704; J1170; Q9967

== ENCOUNTER → 2019-12-30 | Outpatient (CLI) | payer MEDICARE, OTHER ==
[2019-12-30 09:04] LABS: Basophils # (A) 0.1 k/uL (0-0.2); Basophils % (A) 1 %; Eosinophils # (A) 0.4 k/uL (0-0.7); Eosinophils % (A) 5 %; HCT 35.8 % (34.0-46.0); HGB 11.3 gm/dL (11.4-16.0); Hypochromasia Marked; Lymphocytes # (A) 0.8 k/uL (1.0-4.8); Lymphocytes % (A) 9 %; MCH 30.2 pg (25.0-35.0); MCHC 31.4 g/dL (31.0-37.0); MCV 96.1 fL (80.0-100.0); Mean Platelet Volume 7.7; Monocytes # (A) 0.4 k/uL (0-1.0); Monocytes % (A) 4 %; Neutrophils # (A) 7.3 k/uL (1.3-7.7); Neutrophils % (A) 80 %; Platelet Count 306 k/uL (150-450); RBC 3.73 m/uL (3.80-5.40); RDW 14.4 % (11.5-15.5); WBC 9.1 k/uL (3.8-10.6)
[2019-12-30 09:14] LABS: Appearance,Urine Clear (Clear); Bacteria,Urine Rare /hpf; Bilirubin,Urine Negative (Negative); Blood,Urine Trace (Negative); Color,Urine Light Yellow; Glucose,Urine (UA) 1+ (Negative); Ketones,Urine Negative (Negative); Leukocyte Esterase,Urine Large (Negative); Mucus,Urine Rare /hpf; Nitrite,Urine Negative (Negative); PH, Urine 5.5 (5.0-8.0); Protein,Urine Negative (Negative); RBC,Urine 15 /hpf (0-5); Specific Gravity,Urine 1.018 (1.001-1.035); Squamous Epithelial Cell,Urine 3 /hpf (0-4); Urobilinogen,Urine <2.0 mg/dL (<2.0); WBC,Urine 12 /hpf (0-5)
[2019-12-30 09:26] LABS: Potassium 5.6 mmol/L (3.5-5.1)
== END | disposition home or self-care (01) ==
LOC: LABPAT 07:49
PROVIDERS: ATTEND Urology
DX: Z01.818 Encounter for other preprocedural examination (principal); N20.0 Calculus of kidney; E11.9 Type 2 diabetes mellitus without complications; R31.21 Asymptomatic microscopic hematuria
CPT/HCPCS: 36415; 80048; 81001; 85025; 87086

== ENCOUNTER 2020-01-06 07:06 | Day surgery (SDC) | payer MEDICARE, OTHER ==
[2020-01-02 13:15] VITALS: BMI 49.3
--- NOTE | 2020-01-04 23:39 | P.HPIHPCON ---
History of Present Illness H&P Date: 01/06/20 Chief Complaint: right sided renal stone Ms Sanchez is a 59 yo female with hx of partial staghorn calculi. She is symptomatic from her stone. She underwent ureteral stent placement in 11/2019, ureteroscopy was performed at that time and showed ureteral narrowing. I discussed the option of PCNL, ESWL and ureteroscopy with her. She agreed to proceed with ureteroscopy, she understood given the size of the stone, this will be a staged procedure she would require a minimum of two cases possibly three and there is potential that some of lower pole stone will not be reached using the ureteroscope. Discussed with him risk which includes but no limited to bleeding, infection and ureteral perforation. Also discussed with him risk from anesthesia. She understood all risk and agreed to proceed with right sided ureteroscopy, holmium laser lithotripsy and stone basketting Consent for Procedure: I have explained the operation/procedure to the patient, including the risks, benefits, side effects, alternative therapies (including not receiving the pro posed treatment or service), the likelihood of the patient achieving his/her goals, and potential recuperation problems for the procedure/sedation/analgesia, as well as any blood products, if indicated. I also explained to the patient the risks, benefits and side effects of the alternatives, as well as the risks related to not receiving the proposed procedure, care, treatment, or services. Past Medical History Past Medical History: Diabetes Mellitus, Hearing Disorder / Deafness, Hyperlipidemia, Thyroid Disorder Additional Past Medical History / Comment(s): DEAF, KIDNEY STONE HISTORY, will be having surgery on left foot in the future History of Any Multi-Drug Resistant Organisms: None Reported Past Surgical History: Cholecystectomy, Orthopedic Surgery Additional Past Surgical History / Comment(s): RT elbow SX, left hip surg., recent cystoscopy w/ureteral stent Past Anesthesia/Blood Transfusion Reactions: No Reported Reaction Additional Past Anesthesia/Blood Transfusion Reaction / Comment(s): REQUESTS TO BE AWAKENED GENTLY Smoking Status: Never smoker - Past Family History Mother History Unknown: Yes Additional Family Medical History / Comment(s): DOESN'T KNOW FAMILY HX Medications and Allergies Home Medications Medication Instructions Recorded Confirmed Type Atorvastatin [Lipitor] 10 mg PO HS 01/30/17 01/02/20 History metFORMIN HCL 1,000 mg PO BID 01/30/17 01/02/20 History Escitalopram Oxalate [Lexapro] 10 mg PO DAILY 08/27/18 01/02/20 History glipiZIDE [Glucotrol] 5 mg PO AC-BID 08/27/18 01/02/20 History Levothyroxine Sodium [Synthroid] 125 mcg PO DAILY 09/04/18 01/02/20 History Aspirin 325 mg PO BID #60 tab 09/07/18 01/02/20 Rx Cholecalciferol [Vitamin D3 (25 1,000 unit PO DAILY 11/21/19 01/02/20 History Mcg = 1000 Iu)] Tamsulosin [Flomax] 0.4 mg PO DAILY #14 cap 12/02/19 01/02/20 Rx Allergies Allergy/AdvReac Type Severity Reaction Status Date / Time No Known Allergies Allergy Verified 01/02/20 12:35 Surgical - Exam - General well developed, well nourished, no distress - Eyes PERRL, normal ocular movement - Respiratory normal expansion, normal respiratory effort - Psychiatric oriented to time, oriented to person, oriented to place Assessment and Plan Assessment: 59 yo female with right sided renal stone -OR for right sided ureteroscopy with holmium laser and stone basketting
[~2020-01-06 07:06] MED LIST changes: -DEXAMETHASONE SOD PHOSPHATE 10 MG/ML 1 ML VIAL IV ONE; -ONDANSETRON 4 MG/2 ML VIAL IVP ONE
[2020-01-06] MEDS ORDERED: LACTATED RINGERS 1,000 ML IV SCH (07:30)
[2020-01-06] MEDS ORDERED: DEXAMETHASONE SOD PHOSPHATE 10 MG/ML 1 ML VIAL IV ONE (07:30)
[2020-01-06] MEDS ORDERED: ONDANSETRON 4 MG/2 ML VIAL IVP ONE (07:30)
[2020-01-06] MEDS ORDERED: HYDROmorphone 0.5 MG/0.5 ML SYRINGE IVP PRN (07:30)
--- NOTE | 2020-01-06 07:50 | XR ---
EXAMINATION TYPE: XR abdomen 1V DATE OF EXAM: 01/06/2020 Comparison: 12/02/2019 Clinical History: 59-year-old female Z01.818 presurgical testing Findings: Cholecystectomy clips. Large area of a shell calcification projecting at the right mid abdomen. A rig ht ureteral stent is in place redemonstrated ovoid 2.9 x 1.0 cm calcification near the proximal stent loop. Nonobstructive bowel gas pattern. Impression: Right ureteral stent in place with unchanged 2.9 x 1.0 cm ovoid calcification at the right mid abdome n. Redemonstrated large area of eggshell calcification right mid abdomen measuring up to at least 14.1 x 9.7 cm. 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 Note that there seems to be some associated mass effect onto the underlying right kidney on the patient's CT.
[2020-01-06 07:57] VITALS: BP 156/88; PULSE 91; RESP 16; TEMP 97.6
[2020-01-06 07:57] LABS: Glucose,Whole Blood 169 mg/dL (75-99)
[2020-01-06] MEDS ORDERED: LIDOCAINE 1% (10MG/ML) FOR IV START INTRADERMA ONE (07:57)
== END 2020-01-06 09:09 | disposition home or self-care (01) ==
LOC: OR 07:06
PROVIDERS: ATTEND Urology
DX: N20.0 Calculus of kidney (principal); E11.9 Type 2 diabetes mellitus without complications; E78.5 Hyperlipidemia, unspecified; E07.9 Disorder of thyroid, unspecified; Z53.8 Procedure and treatment not carried out for other reasons; H91.90 Unspecified hearing loss, unspecified ear; Z87.442 Personal history of urinary calculi; Z90.49 Acquired absence of other specified parts of digestive tract; Z98.890 Other specified postprocedural states; Z96.0 Presence of urogenital implants; Z79.84 Long term (current) use of oral hypoglycemic drugs; Z79.82 Long term (current) use of aspirin; Z79.890 Hormone replacement therapy; Z79.899 Other long term (current) drug therapy
CPT/HCPCS: 84132; 74018; J1100; J2405

== ENCOUNTER → 2020-01-13 | Outpatient (CLI) | payer MEDICARE, OTHER ==
[2020-01-13 09:38] LABS: Appearance,Urine Clear (Clear); Bilirubin,Urine Negative (Negative); Blood,Urine Negative (Negative); Color,Urine Colorless; Glucose,Urine (UA) Negative (Negative); Hyaline Casts,Urine 1 /lpf (0-2); Ketones,Urine Negative (Negative); Leukocyte Esterase,Urine Small (Negative); Mucus,Urine Rare /hpf; Nitrite,Urine Negative (Negative); Protein,Urine Negative (Negative); RBC,Urine 2 /hpf (0-5); Specific Gravity,Urine 1.008 (1.001-1.035); Squamous Epithelial Cell,Urine <1 /hpf (0-4); Urobilinogen,Urine <2.0 mg/dL (<2.0); WBC,Urine 1 /hpf (0-5)
[2020-01-13 10:12] LABS: Calcium 9.2 mg/dL (8.4-10.2); Potassium 5.5 mmol/L (3.5-5.1)
== END | disposition home or self-care (01) ==
LOC: LABPAT 08:10
PROVIDERS: ATTEND Urology
DX: Z01.818 Encounter for other preprocedural examination (principal); E78.5 Hyperlipidemia, unspecified; R31.29 Other microscopic hematuria; N20.0 Calculus of kidney
CPT/HCPCS: 80048; 81001; 87086

== ENCOUNTER → 2020-01-20 | Outpatient (CLI) | payer MEDICARE, OTHER ==
[2020-01-20 15:07] LABS: African American GFR (CKD) 48.2 (60.0-200.0); BUN/Creat Ratio 17.14 Ratio (12.00-20.00); Calcium 10.3 mg/dL (8.7-10.3); Magnesium 1.1 mg/dL (1.5-2.4); Non-African American GFR(CKD) 41.6 (60.0-200.0)
[2020-01-21 06:55] LABS: Potassium 6.4 mmol/L (3.5-5.5)
== END | disposition home or self-care (01) ==
LOC: LABWHC1 07:10
PROVIDERS: ATTEND Urology
DX: E87.5 Hyperkalemia (principal)
CPT/HCPCS: 36415; 80048; 83735

== ENCOUNTER → 2020-01-24 | Outpatient (CLI) | payer MEDICARE, OTHER | END | disposition home or self-care (01) | LOC: LABWHC1 07:09 | PROVIDERS: ATTEND Urology | DX: E87.5 Hyperkalemia (principal) | CPT/HCPCS: 36415; 84132 ==

== ENCOUNTER → 2020-01-27 | Day surgery (SDC) | payer MEDICARE, OTHER ==
[2020-01-24 09:15] VITALS: BMI 49.3
--- NOTE | 2020-01-24 18:07 | P.HPIHPCON ---
History of Present Illness H&P Date: 01/27/20 Chief Complaint: right sided renal calculi Ms Sanchez is a 59 yo female with hx of partial staghorn calculi. She is symptomatic from her stone. She underwent ureteral stent placement in 11/2019, ureteroscopy was performed at that time and showed ureteral narrowing. I discussed the option of PCNL, ESWL and ureteroscopy with her. She agreed to proceed with ureteroscopy, she understood given the size of the stone, this will be a staged procedure she would require a minimum of two cases possibly three and there is potential that some of lower pole stone will not be reached using the ureteroscope. Discussed with him risk which includes but no limited to bleeding, infection and ureteral perforation. Also discussed with him risk from anesthesia. She understood all risk and agreed to proceed with right sided ureteroscopy, holmium laser lithotripsy and stone basketting Consent for Procedure: I have explained the operation/procedure to the patient, including the risks, benefits, side effects, alternative therapies (including not receiving the p roposed treatment or service), the likelihood of the patient achieving his/her goals, and potential recuperation problems for the procedure/sedation/analgesia, as well as any blood products, if indicated. I also explained to the patient the risks, benefits and side effects of the alternatives, as well as the risks related to not receiving the proposed procedure, care, treatment, or services. - Constitutional Constitutional: Denies chills, Denies fever - Cardiovascular Cardiovascular: Denies leg edema - Respiratory Respiratory: Denies cough, Denies 7 - Gastrointestinal Gastrointestinal: Denies abdominal pain, Denies diarrhea, Denies nausea, Denies vomiting Past Medical History Past Medical History: Diabetes Mellitus, Thyroid Disorder Additional Past Medical History / Comment(s): DEAF, KIDNEY STONES, HX OF ELEVATED POTASSIUM History of Any Multi-Drug Resistant Organisms: None Reported Past Surgical History: Cholecystectomy, Orthopedic Surgery Additional Past Surgical History / Comment(s): RT ELBOW SX, TOTAL LEFT HIP Past Anesthesia/Blood Transfusion Reactions: No Reported Reaction Additional Past Anesthesia/Blood Transfusion Reaction / Comment(s): REQUESTS TO BE AWAKENED GENTLY Past Psychological History: No Psychological Hx Reported Smoking Status: Never smoker Past Alcohol Use History: None Reported Past Drug Use History: None Reported - Past Family History Mother History Unknown: Yes Family Medical History: No Reported History Additional Family Medical History / Comment(s): . Medications and Allergies Home Medications Medication Instructions Recorded Confirmed Type metFORMIN HCL 1,000 mg PO BID 01/30/17 01/24/20 History Cholecalciferol [Vitamin D3 (25 1,000 unit PO DAILY 11/21/19 01/24/20 History Mcg = 1000 Iu)] Furosemide [Lasix] 40 mg PO DAILY 01/24/20 01/24/20 History Levothyroxine Sodium [Levoxyl] 150 mcg PO DAILY 01/24/20 01/24/20 History glipiZIDE [Glucotrol] 10 mg PO AC-BID 01/24/20 01/24/20 History Allergies Allergy/AdvReac Type Severity Reaction Status Date / Time No Known Allergies Allergy Verified 01/24/20 08:45 Surgical - Exam - General well developed, well nourished, no distress - Eyes normal ocular movement - ENT normal nares, normal mucosa - Respiratory normal expansion, normal respiratory effort Assessment and Plan Assessment: 59-year-old female with history of right-sided renal stone Plan: -OR for right ureteroscopy, holmium laser lithotripsy, stone basketting and stent exchange
[~2020-01-27] MED LIST changes: +DEXAMETHASONE SOD PHOSPHATE 4 MG/ML 1 ML VIAL IV ONE; +GLYCOPYRROLATE 0.2 MG/ML 2 ML VIAL ONE; +HYDROmorphone 0.5 MG/0.5 ML SYRINGE IVP PRN; +IOPAMIDOL-370 50ML BTL IRRIGATION ONE; +LACTATED RINGERS 1,000 ML IV ONE; +LACTATED RINGERS 1,000 ML IV SCH; +LIDOCAINE 1% INJ 10MG/ML (20 ML MDV) ONE; +MIDAZOLAM 2 MG/2 ML VIAL IV PRN; +MIDAZOLAM 2 MG/2 ML VIAL ONE; +NEOSTIGMINE 1 MG/ML 10 ML VIAL ONE; +ONDANSETRON 4 MG/2 ML VIAL IVP ONE; +PROPOFOL 10 MG/ML 20 ML VIAL IV ONE; +ROCURONIUM 10 MG/ML (10 ML VIAL) IV ONE; +SCOPOLAMINE 1.5MG/72HR PATCH TRANSDERM ONE; +SUCCINYLCHOLINE CHLORIDE 100 MG/5 ML SYR IV ONE; +fentaNYL (PF) 50 MCG/ML 2 ML AMP ONE
--- NOTE | 2020-01-27 09:21 | XR ---
EXAMINATION TYPE: XR KUB DATE OF EXAM: 01/27/2020 9:02 AM CLINICAL HISTORY: Kidney stones. TECHNIQUE: Two supplying KUB images of the abdomen are obtained. COMPARISON: Most recent CT October 30, 2019. Abdominal x-ray December 02, 2019. FINDINGS: Stable large 2.9 cm elongated lower pole right renal calculus. New double-J right ureteral stent. Persistent larger rim calcified cyst occupying significant portion of the right renal fossa. S table 4 to 5 mm left renal calculus mid 12th rib lower pole of the left kidney. Cholecystectomy clips. Overall nonobstructive bowel gas pattern. Elevated left hemidiaphragm. Metalli c artifact from left hip surgery partially imaged. IMPRESSION: New Right double-J ureter stent. Stable large lower pole right renal calculus.
[2020-01-27 09:30] LABS: Glucose,Whole Blood 166 mg/dL (75-99)
--- NOTE | 2020-01-27 13:27 | P.OP ---
Date of Procedure: 01/27/20 Preoperative Diagnosis: Right renal calculi Postoperative Diagnosis: Same Procedure(s) Performed: Cystoscopy, ureteroscopy, retrograde pyelogram ,holmium laser lithotripsy, stent exchange Implants: 6-Marshallese by 22 cm stent Anesthesia: KLAUS Surgeon: Kwesi Mariscal Estimated Blood Loss (ml): 5 Pathology: other (Right renal calculi) Condition: stable Disposition: PACU Indications for Procedure: Ms Sanchez is a 59 yo female with hx of partial staghorn calculi. She is symptomatic from her stone. She underwent ureteral stent placement in 11/2019, ureteroscopy was performed at that time and showed ureteral narrowing. I discussed the option of PCNL, ESWL and ureteroscopy with her. She agreed to proceed with ureteroscopy, she understood given the size of the stone, this will be a staged procedure she would require a minimum of two cases possibly three and there is potential that some of lower pole stone will not be reached using the ureteroscope. Discussed with him risk which includes but no limited to bleeding, infection and ureteral perforation. Also discussed with him risk from anesthesia. She understood all risk and agreed to proceed with right sided ureteroscopy, holmium laser lithotripsy and stone basketting Operative Findings: Large stone within the lower pole, of note patient has an acute angle to the lower pole of the kidney difficult to access the stone Description of Procedure: Patient was brought to the operating room, general anesthesia was induced. She was prepped and draped in sterile fashion a placement dorsal lithotomy position. Cystoscopy fitted with a 22 sheath was inserted per urethra. Using the stent grasper the stent was grasped and pulled to the meatus. A sensor wire was advanced through the stent and the stent was removed with the wire in place. Next a ureteral catheter was passed over the wire, retrograde pyelogram was performed showed no filling defect in the ureter, of note patient had a torturous proximal ureter. At this time a sensor wire was advanced through the catheter catheter was removed with the wire in place. Next in access sheath was advanced over the wire, but of note patient had a low-lying kidney. This time I attempted to advance the scope through the access sheath, but there was significant amount of access sheath out of the urethra which made maneuvering the scope very difficult. At this time I advance a wire through the access sheath access sheath, and access sheath was removed the wire in place. Next a flexible ureteroscope was passed over the wire, into the renal pelvis. Renoscopy was performed showed a large stone in the lower pole. Of note the stone was an acute angle in the lower pole which made difficult to access. I was able to see the stone I fragmented the stone using the holmium laser. , approximately half of the stone was fragmented. At this time pullback ureteroscopy was performed which showed no injury to the ureter or ureteral stone. The wire was advanced through the ureteroscope as the ureteroscope was withdrawn. Next a 6-Marshallese by 22 cm stent was passed over the wire, the proximal curl was visualized on fluoroscopy and the distal curl was visualized using the cystoscope. The bladder was emptied and the case. Patient was awakened from anesthesia and taken recovery in stable condition. At this time we will proceed with second stage ureteroscopy in approximately 4 weeks
[2020-01-27 13:31] VITALS: TEMP 97
[2020-01-27 13:37] LABS: Glucose,Whole Blood 180 mg/dL (75-99)
--- NOTE | 2020-01-27 14:04 | FL ---
EXAMINATION TYPE: FL urography retrograde DATE OF EXAM: 01/27/2020 COMPARISON: NONE HISTORY: R kidney stone TECHNIQUE: Fluoroscopy. FINDINGS: R side kidney stone, 39sec fl time IMPRESSION: As Above.
[2020-01-27 14:45] VITALS: RESP 20
[2020-01-27 15:06] VITALS: BP 139/85; PULSE 80
== END ==
LOC: OR 08:19
PROVIDERS: ATTEND Urology
DX: N20.0 Calculus of kidney (principal); E11.9 Type 2 diabetes mellitus without complications; E07.9 Disorder of thyroid, unspecified; H91.93 Unspecified hearing loss, bilateral; Z79.84 Long term (current) use of oral hypoglycemic drugs; Z79.890 Hormone replacement therapy; Z79.899 Other long term (current) drug therapy; Z90.49 Acquired absence of other specified parts of digestive tract; Z98.890 Other specified postprocedural states; Z96.642 Presence of left artificial hip joint
CPT/HCPCS: 74420; 74018; 52356; C2625; C1758; C1769; J2250; J1580; J1100; J2710; J0690; J2405; J2001; J3010; J0330; J2704; Q9967

== ENCOUNTER → 2020-02-28 | Outpatient (CLI) | payer MEDICARE, OTHER ==
[2020-02-28 13:42] LABS: Basophils # (A) 0.1 k/uL (0-0.2); Basophils % (A) 1 %; Eosinophils # (A) 0.4 k/uL (0-0.7); Eosinophils % (A) 4 %; HCT 37.9 % (34.0-46.0); HGB 11.7 gm/dL (11.4-16.0); Hypochromasia Slight; Lymphocytes # (A) 1.4 k/uL (1.0-4.8); Lymphocytes % (A) 13 %; MCH 28.5 pg (25.0-35.0); MCV 91.9 fL (80.0-100.0); Mean Platelet Volume 7.8; Monocytes # (A) 0.5 k/uL (0-1.0); Monocytes % (A) 5 %; Neutrophils # (A) 8.3 k/uL (1.3-7.7); Neutrophils % (A) 77 %; Platelet Count 292 k/uL (150-450); RBC 4.12 m/uL (3.80-5.40); RDW 13.9 % (11.5-15.5); WBC 10.8 k/uL (3.8-10.6)
[2020-02-28 13:51] LABS: Potassium 4.9 mmol/L (3.5-5.1)
[2020-02-28 14:02] LABS: Appearance,Urine Clear (Clear); Bacteria,Urine Rare /hpf; Bilirubin,Urine Negative (Negative); Blood,Urine Moderate (Negative); Color,Urine Light Yellow; Glucose,Urine (UA) Negative (Negative); Ketones,Urine Negative (Negative); Leukocyte Esterase,Urine Large (Negative); Mucus,Urine Rare /hpf; Nitrite,Urine Negative (Negative); Protein,Urine Negative (Negative); RBC,Urine 36 /hpf (0-5); Specific Gravity,Urine 1.013 (1.001-1.035); Squamous Epithelial Cell,Urine 2 /hpf (0-4); Urobilinogen,Urine <2.0 mg/dL (<2.0); WBC,Urine 8 /hpf (0-5)
== END | disposition home or self-care (01) ==
LOC: LABPAT 12:59
PROVIDERS: ATTEND Urology
DX: Z01.818 Encounter for other preprocedural examination (principal); N20.0 Calculus of kidney; E10.9 Type 1 diabetes mellitus without complications; R31.29 Other microscopic hematuria
CPT/HCPCS: 36415; 80048; 81001; 85025; 87086

== ENCOUNTER 2020-03-02 06:44 | Day surgery (SDC) | payer MEDICARE, OTHER ==
--- NOTE | 2020-02-27 12:03 | P.HPIHPCON ---
History of Present Illness H&P Date: 02/27/20 Chief Complaint: right sided renal stone Ms Sanchez is a 59 yo female with hx of partial staghorn calculi. She is symptomatic from her stone. She underwent ureteral stent placement in 11/2019, ureteroscopy was performed at that time and showed ureteral narrowing. she subsquently underwent first stage ureteroscopy on 01/27/20. She presents today for second stage ureteroscopy. she understood given the size of the stone, this will be a staged procedure she would require a minimum of two cases possibly three and there is potential that some of lower pole stone will not be reached using the ureteroscope. Discussed with him risk which includes but no limited to bleeding, infection and ureteral perforation. Also discussed with him risk from anesthesia. She understood all risk and agreed to proceed with right sided ureteroscopy, holmium laser lithotripsy and stone basketting Consent for Procedure: I have explained the operation/procedure to the patient, including the risks, benefits, side effects, alternative therapies (including not receiving the proposed treatment or service), the likelihood of the patient achieving his/her goals, and potential recuperation problems for the procedure/sedation/analgesia, as well as any blood products, if indicated. I also explained to the patient the risks, benefits and side effects of the alternatives, as well as the risks related to not receiving the proposed procedure, care, treatment, or services. Past Medical History Past Medical History: Diabetes Mellitus, Thyroid Disorder Additional Past Medical History / Comment(s): DEAF, KIDNEY STONES, HX OF ELEVATED POTASSIUM History of Any Multi-Drug Resistant Organisms: None Reported Past Surgical History: Cholecystectomy, Orthopedic Surgery Additional Past Surgical History / Comment(s): RT ELBOW SX, TOTAL LEFT HIP Past Anesthesia/Blood Transfusion Reactions: No Reported Reaction Additional Past Anesthesia/Blood Transfusion Reaction / Comment(s): REQUESTS TO BE AWAKENED GENTLY Past Psychological History: No Psychological Hx Reported Past Alcohol Use History: None Reported Past Drug Use History: None Reported - Past Family History Mother History Unknown: Yes Additional Family Medical History / Comment(s): . Medications and Allergies Home Medications Medication Instructions Recorded Confirmed Type metFORMIN HCL 1,000 mg PO BID 01/30/17 01/24/20 History Cholecalciferol [Vitamin D3 (25 1,000 unit PO DAILY 11/21/19 01/24/20 History Mcg = 1000 Iu)] Furosemide [Lasix] 40 mg PO DAILY 01/24/20 01/24/20 History Levothyroxine Sodium [Levoxyl] 150 mcg PO DAILY 01/24/20 01/24/20 History glipiZIDE [Glucotrol] 10 mg PO AC-BID 01/24/20 01/24/20 History Cephalexin [Keflex] 500 mg PO Q8HR #15 cap 01/27/20 Rx Tamsulosin [Flomax] 0.4 mg PO DAILY #30 cap 01/27/20 Rx traMADol HCL [Ultram] 50 mg PO Q6HR PRN 3 Days #12 tab 01/27/20 Rx Allergies Allergy/AdvReac Type Severity Reaction Status Date / Time No Known Allergies Allergy Verified 01/24/20 08:45 Surgical - Exam - General well developed, well nourished, no distress, moderate pain - ENT normal nares, normal mucosa - Respiratory normal expansion, normal respiratory effort - Abdomen Abdomen: soft, non tender Assessment and Plan Assessment: 59 yo female with right sided renal stone -OR for right sided ureteroscopy, holmium laser lithotripsy, stone basketting and stent exchange
[2020-02-27 15:58] VITALS: BMI 49.7
[~2020-03-02 06:44] MED LIST changes: -GENTAMICIN 120 MG in SODIUM CHLORIDE 0.9% 100 ML IVPB ONE; +GENTAMICIN 120 MG in SODIUM CHLORIDE 0.9% 100 ML IVPB PRN; -GLYCOPYRROLATE 0.2 MG/ML 2 ML VIAL ONE; -IOPAMIDOL-370 50ML BTL IRRIGATION ONE; -LACTATED RINGERS 1,000 ML IV ONE; +LIDOCAINE 1% (10MG/ML) FOR IV START INTRADERMA PRN; -LIDOCAINE 1% INJ 10MG/ML (20 ML MDV) ONE; -MIDAZOLAM 2 MG/2 ML VIAL IV PRN; -MIDAZOLAM 2 MG/2 ML VIAL ONE; -NEOSTIGMINE 1 MG/ML 10 ML VIAL ONE; -PROPOFOL 10 MG/ML 20 ML VIAL IV ONE; -ROCURONIUM 10 MG/ML (10 ML VIAL) IV ONE; -SUCCINYLCHOLINE CHLORIDE 100 MG/5 ML SYR IV ONE; -fentaNYL (PF) 50 MCG/ML 2 ML AMP ONE
--- NOTE | 2020-03-02 07:33 | XR ---
EXAMINATION TYPE: XR KUB DATE OF EXAM: 03/02/2020 HISTORY: Pain Comparison: 01/27/2020 Single KUB is submitted for interpretation. Findings: Right renal calculi: Elongate lower pole right renal calculus is again noted however appears smaller in size and currently measures 1.9 cm in greatest dimension versus 2.9 cm previously. Rim calcified cyst right kidney is a gain noted. Right ureteral calculi: Double-J right ureteral stent is unchanged in position. No calculus noted gissel ng the course of the right ureteral stent. Left renal calculi: Sub-5 mm left renal calculi redemonstrated. Left ureteral calculi: None Visualized. Pelvic calcifications: None Visualized. Bowel gas pattern is unremarkable. No free air. No mass effects. IMPRESSION: 1. Elongate lower pole right renal calculus is again noted however appears smaller in size and curren tly measures 1.9 cm in greatest dimension versus 2.9 cm previously.
[2020-03-02 07:41] LABS: Glucose,Whole Blood 149 mg/dL (75-99)
[2020-03-02] MEDS ORDERED: PROPOFOL 10 MG/ML 20 ML VIAL IV ONE (09:11)
[2020-03-02] MEDS ORDERED: LIDOCAINE 1% INJ 10MG/ML (20 ML MDV) ONE (09:11)
[2020-03-02] MEDS ORDERED: MIDAZOLAM 2 MG/2 ML VIAL ONE (09:11)
[2020-03-02] MEDS ORDERED: SUCCINYLCHOLINE CHLORIDE 100 MG/5 ML SYR IV ONE (09:11)
[2020-03-02] MEDS ORDERED: fentaNYL (PF) 50 MCG/ML 2 ML AMP ONE (09:11)
[2020-03-02] MEDS ORDERED: LACTATED RINGERS 1,000 ML IV ONE (09:30)
[2020-03-02 11:18] VITALS: TEMP 97.7
--- NOTE | 2020-03-02 11:23 | FL ---
Fluoroscopy History: Cysto for Rt side Kidney stones 13sec fluoro time, 2 images scanned
[2020-03-02 11:49] LABS: Glucose,Whole Blood 190 mg/dL (75-99)
[2020-03-02 12:09] VITALS: RESP 18
[2020-03-02 12:50] VITALS: BP 137/78; PULSE 78
--- NOTE | 2020-03-02 18:07 | P.OP ---
Date of Procedure: 03/02/20 Preoperative Diagnosis: right renal stones Postoperative Diagnosis: same Procedure(s) Performed: cystoscopy, right ureteroscopy, holmium laser lithotripsy and stent exchange Implants: 6 Fr stent by 22 cm stent Anesthesia: KLAUS Surgeon: Kwesi Mariscal Estimated Blood Loss (ml): 5 Pathology: none sent Condition: stable Disposition: PACU Indications for Procedure: Ms Sanchez is a 59 yo female with hx of partial staghorn calculi. She is symptomatic from her stone. She underwent ureteral stent placement in 11/2019, ureteroscopy was performed at that time and showed ureteral narrowing. she subsquently underwent first stage ureteroscopy on 01/27/20. She presents today for second stage ureteroscopy. she understood given the size of the stone, this will be a staged procedure she would require a minimum of two cases possibly three and there is potential that some of lower pole stone will not be reached using the ureteroscope. Discussed with him risk which includes but no limited to bleeding, infection and ureteral perforation. Also discussed with him risk from anesthesia. She understood all risk and agreed to proceed with right sided ureteroscopy, holmium laser lithotripsy and stone basketting Operative Findings: large stone in the right lower pole, most lower portion of stone could not be reached using the ureteroscope, the ureteroscope was at maximum flexion. Description of Procedure: Patient was brought to the operating room, general anesthesia was induced. She was prepped and draped in sterile fashion a placement dorsal lithotomy position. Cystoscopy fitted with a 22 sheath was inserted per urethra. Using the stent grasper the stent was grasped and pulled to the meatus. A sensor wire was advanced through the stent and the stent was removed with the wire in place. Next a flexible ureteroscope was passed over the wire, into the renal pelvis. Renoscopy was performed showed a large stone in the lower pole. Of note the stone was an acute angle in the lower pole which made difficult to access. The stone was dusted using the holmium laser. More than 80 % of the stone was fragmented. the lower most portion of stone could not be accessed using the ureteroscope, as the ureteroscope was at maximum flexion. repeat renoscopy showed no injury to the kidney, or sizable fragments outside the residual stone in lower pole. At this time pullback ureteroscopy was performed which showed no injury to the ureter or ureteral stone. The wire was advanced through the ureteroscope as the ureteroscope was withdrawn. Next a 6-Kyrgyz by 22 cm stent was passed over the wire, the proximal curl was visualized on fluoroscopy and the distal curl was visualized using the cystoscope. The bladder was emptied and the case. Patient was awakened from anesthesia and taken recovery in stable condition.
== END 2020-03-02 12:51 | disposition home or self-care (01) ==
LOC: OR 06:44
PROVIDERS: ATTEND Urology
DX: N20.0 Calculus of kidney (principal); E11.9 Type 2 diabetes mellitus without complications; E07.9 Disorder of thyroid, unspecified; H91.90 Unspecified hearing loss, unspecified ear; Z87.442 Personal history of urinary calculi; Z90.49 Acquired absence of other specified parts of digestive tract; Z96.642 Presence of left artificial hip joint; Z98.890 Other specified postprocedural states; Z79.84 Long term (current) use of oral hypoglycemic drugs; Z79.890 Hormone replacement therapy; Z79.899 Other long term (current) drug therapy
CPT/HCPCS: 74018; 52356; C2625; C1769; J2250; J1100; J0690; J2405; J2001; J3010; J1580; J0330; J2704

== ENCOUNTER → 2020-04-06 | Outpatient (CLI) | payer MEDICARE, OTHER | END | disposition home or self-care (01) | LOC: RADMRIMAIN 08:27 | PROVIDERS: ATTEND Urology | DX: Z53.9 Procedure and treatment not carried out, unspecified reason (principal) ==

== ENCOUNTER → 2020-04-22 | Outpatient (CLI) | payer MEDICARE, OTHER ==
[2020-04-22 19:26] LABS: Hemoglobin A1C 8.8 % (4.0-6.0)
[2020-04-23 00:02] LABS: African American GFR (CKD) 52.7 (60.0-200.0); Anion Gap 12.5 mmol/L (4.00-12.00); BUN/Creat Ratio 22.31 Ratio (12.00-20.00); Calcium 9.5 mg/dL (8.7-10.3); Carbon Dioxide 24.5 mmol/L (21.6-31.8); Magnesium 1.1 mg/dL (1.5-2.4); Non-African American GFR(CKD) 45.5 (60.0-200.0); Potassium 4.9 mmol/L (3.5-5.5)
== END | disposition home or self-care (01) ==
LOC: LABWHC1 10:03
PROVIDERS: ATTEND Family Medicine
DX: E11.9 Type 2 diabetes mellitus without complications (principal); E87.5 Hyperkalemia
CPT/HCPCS: 36415; 80048; 83036; 83735

== ENCOUNTER 2021-07-25 20:47 | Observation (INO) | payer MEDICARE, OTHER ==
[2021-07-25] MEDS ORDERED: SODIUM CHLORIDE 0.9% 500 ML 500 ML IV STA (20:56)
[2021-07-25] MEDS ORDERED: MORPHINE SULFATE 4 MG/ML SYRINGE IVP STA (20:57)
--- NOTE | 2021-07-25 21:17 | CT ---
EXAMINATION TYPE: CT brain wo con for TPA DATE OF EXAM: 07/25/2021 COMPARISON: None HISTORY: headache CT DLP: 1106.4 mGycm Automated exposure control for dose reduction was used. Images of the brain obtained without contrast. Ventricles have normal size. There is no mass effect or midline shift. There is no sign of intracrani al hemorrhage. The calvarium is intact. There is normal aeration of the mastoid sinuses. IMPRESSION: Negative unenhanced head CT scan.
--- NOTE | 2021-07-25 21:19 | XR ---
EXAMINATION TYPE: XR chest 2V DATE OF EXAM: 07/25/2021 COMPARISON: NONE HISTORY: Headache TECHNIQUE: 2 views FINDINGS: There is no heart failure nor confluent pneumonic infiltrate. There is coarsening of the in terstitial markings in the lower lung ramirez. No pleural effusion. There are no hilar masses. IMPRESSION: Coarse lung markings. No pulmonary consolidation or heart failure.
[2021-07-25 21:55] LABS: Basophils # (A) 0.1 k/uL (0-0.2); Basophils % (A) 1 %; Eosinophils # (A) 0.4 k/uL (0-0.7); Eosinophils % (A) 3 %; HCT 43.4 % (34.0-46.0); Lymphocytes # (A) 1.2 k/uL (1.0-4.8); Lymphocytes % (A) 9 %; MCH 28.6 pg (25.0-35.0); MCHC 29.9 g/dL (31.0-37.0); MCV 95.7 fL (80.0-100.0); Mean Platelet Volume 8.2; Monocytes # (A) 0.4 k/uL (0-1.0); Monocytes % (A) 3 %; Neutrophils # (A) 11.6 k/uL (1.3-7.7); Neutrophils % (A) 84 %; Platelet Count 284 k/uL (150-450); RBC 4.53 m/uL (3.80-5.40); RDW 14.3 % (11.5-15.5); WBC 13.9 k/uL (3.8-10.6)
[2021-07-25 22:09] LABS: Albumin 4.1 g/dL (3.5-5.0); Calcium 9.2 mg/dL (8.4-10.2); Potassium 4.9 mmol/L (3.5-5.1); Total Bilirubin 0.4 mg/dL (0.2-1.3); Total Protein 7.5 g/dL (6.3-8.2)
[2021-07-25] MEDS ORDERED: diphenhydrAMINE 50 MG/ML 1 ML VIAL IVP STA (22:13)
[2021-07-25] MEDS ORDERED: KETOROLAC 15 MG/ML 1 ML VIAL IVP STA (22:13)
[2021-07-25] MEDS ORDERED: METOCLOPRAMIDE 5 MG/ML 2 ML VIAL IVP STA (22:13)
--- NOTE | 2021-07-25 22:13 | ED ---
Headache HPI - General Chief Complaint: Headache Stated Complaint: Headache Time Seen by Provider: 07/25/21 20:55 Mode of arrival: EMS - History of Present Illness Initial Comments: Kelly is a 60-year-old female who is brought to the emergency department today by ambulance for evaluation of headache. Patient reports that between 4 and 5 PM she developed a headache that seems to be a pulsating headache on the right side of her head. At the evening headache persisted she felt like she might have some tingling in her left arm which prompted her to come to the ER for evaluation. Patient has a history of hypertension though she is not on any medications for this. No history of migraines. No previous intracranial surgeries. Patient has congenital deafness and communicates via ASL her daughter at bedside is acting as computer drafter. - Related Data Home Medications Medication Instructions Recorded Confirmed metFORMIN HCL [Glucophage] 1,000 mg PO BID 01/30/17 03/02/20 Cholecalciferol [Vitamin D3 (25 1,000 unit PO DAILY 11/21/19 03/02/20 Mcg = 1000 Iu)] Levothyroxine Sodium [Levoxyl] 150 mcg PO DAILY 01/24/20 03/02/20 glipiZIDE [Glucotrol] 10 mg PO AC-BID 01/24/20 03/02/20 Previous Rx's Medication Instructions Recorded Cephalexin [Keflex] 500 mg PO Q8HR #15 cap 01/27/20 Tamsulosin [Flomax] 0.4 mg PO DAILY #30 cap 01/27/20 traMADol HCL [Ultram] 50 mg PO Q6HR PRN 3 Days #8 tab 03/02/20 Allergies Allergy/AdvReac Type Severity Reaction Status Date / Time No Known Allergies Allergy Verified 02/27/20 15:59 Review of Systems ROS Statement: Those systems with pertinent positive or pertinent negative responses have been documented in the HPI. ROS Other: All systems not noted in ROS Statement are negative. Past Medical History Past Medical History: Diabetes Mellitus, Hearing Disorder / Deafness, Thyroid Disorder Additional Past Medical History / Comment(s): DEAF, KIDNEY STONES, HX OF ELEVATED POTASSIUM, left leg and foot nerve tingling. History of Any Multi-Drug Resistant Organisms: None Reported Past Surgical History: Cholecystectomy, Joint Replacement, Orthopedic Surgery Additional Past Surgical History / Comment(s): RT ELBOW SX, TOTAL LEFT HIP, kidn ey stone surgery X2. Past Anesthesia/Blood Transfusion Reactions: No Reported Reaction Additional Past Anesthesia/Blood Transfusion Reaction / Comment(s): REQUESTS TO BE AWAKENED GENTLY. Past Psychological History: No Psychological Hx Reported Smoking Status: Never smoker Past Alcohol Use History: None Reported Past Drug Use History: None Reported - Past Family History Mother History Unknown: Yes Family Medical History: No Reported History Additional Family Medical History / Comment(s): . General Exam - General Exam Comments Initial Comments: Physical Exam GENERAL: Patient is well-developed and well-nourished. Patient is nontoxic and well-hydrated and is in no distress. HENT: Normocephalic, Atraumatic. EYES: PERRL, EOMI PULMONARY: Unlabored respirations. CARDIOVASCULAR: RRR Warm and well perfused extremities ABDOMEN: Non-distended SKIN: No rashes or bruising : Deferred NEUROLOGIC: Alert and oriented Normal gait Deaf MUSCULOSKELETAL: Moving all extremities with no apparent injury PSYCHIATRIC: No SI/HI Course Vital Signs 07/25/21 20:50 Pulse Rate 83 Respiratory 18 Rate Blood Pressure 174/88 O2 Sat by Pulse 97 Oximetry Medical Decision Making - Medical Decision Making Patient was seen and evaluated, history is obtained from the patient with her child acting as a computer drafter. Patient with headache that began earlier in the night progressively worsened. Patient does have a history of headaches no history of any intracranial surgeries. NIH is 0 upon initial evaluation, patient has no weaknesses no facial droop, speech cannot be assessed due to patient's deafness patient is nonverbal however the patient is able to communicate with ASL indicating she distal half language fluency Head CT was unremarkable patient did receive morphine and had some improvement in her pain she then received a migraine cocktail and was sleeping comfortably Considering that this headache was so atypical for the patient she's feeling s omewhat anxious about the idea of going home like to remain in the hospital overnight I do feel is reasonable to rule out TIA and have her evaluated by neurology given that she had a headache with tingling in the left arm that has resolved. - Lab Data Result diagrams: 07/25/21 21:34 07/25/21 21:34 Lab Results 07/25/21 07/25/21 07/25/21 Range/Units 21:34 21:34 21:34 WBC 13.9 H (3.8-10.6) k/uL RBC 4.53 (3.80-5.40) m/uL Hgb 13.0 (11.4-16.0) gm/dL Hct 43.4 (34.0-46.0) % MCV 95.7 (80.0-100.0) fL MCH 28.6 (25.0-35.0) pg MCHC 29.9 L (31.0-37.0) g/dL RDW 14.3 (11.5-15.5) % Plt Count 284 (150-450) k/uL MPV 8.2 Neutrophils % 84 % Lymphocytes % 9 % Monocytes % 3 % Eosinophils % 3 % Basophils % 1 % Neutrophils # 11.6 H (1.3-7.7) k/uL Lymphocytes # 1.2 (1.0-4.8) k/uL Monocytes # 0.4 (0-1.0) k/uL Eosinophils # 0.4 (0-0.7) k/uL Basophils # 0.1 (0-0.2) k/uL PT 10.5 (9.0-12.0) sec INR 1.0 (<1.2) APTT 22.1 (22.0-30.0) sec Sodium 141 (137-145) mmol/L Potassium 4.9 (3.5-5.1) mmol/L Chloride 103 (98-107) mmol/L Carbon Dioxide 27 (22-30) mmol/L Anion Gap 11 mmol/L BUN 23 H (7-17) mg/dL Creatinine 1.22 H (0.52-1.04) mg/dL Est GFR (CKD-EPI)AfAm 57 (>60 ml/min/1.73 sqM) Est GFR (CKD-EPI)NonAf 49 (>60 ml/min/1.73 sqM) Glucose 116 H (74-99) mg/dL Calcium 9.2 (8.4-10.2) mg/dL Total Bilirubin 0.4 (0.2-1.3) mg/dL AST 48 H (14-36) U/L ALT 28 (4-34) U/L Alkaline Phosphatase 83 (38-126) U/L Troponin I (0.000-0.034) ng/mL Total Protein 7.5 (6.3-8.2) g/dL Albumin 4.1 (3.5-5.0) g/dL 07/25/21 Range/Units 21:34 WBC (3.8-10.6) k/uL RBC (3.80-5.40) m/uL Hgb (11.4-16.0) gm/dL Hct (34.0-46.0) % MCV (80.0-100.0) fL MCH (25.0-35.0) pg MCHC (31.0-37.0) g/dL RDW (11.5-15.5) % Plt Count (150-450) k/uL MPV Neutrophils % % Lymphocytes % % Monocytes % % Eosinophils % % Basophils % % Neutrophils # (1.3-7.7) k/uL Lymphocytes # (1.0-4.8) k/uL Monocytes # (0-1.0) k/uL Eosinophils # (0-0.7) k/uL Basophils # (0-0.2) k/uL PT (9.0-12.0) sec INR (<1.2) APTT (22.0-30.0) sec Sodium (137-145) mmol/L Potassium (3.5-5.1) mmol/L Chloride (98-107) mmol/L Carbon Dioxide (22-30) mmol/L Anion Gap mmol/L BUN (7-17) mg/dL Creatinine (0.52-1.04) mg/dL Est GFR (CKD-EPI)AfAm (>60 ml/min/1.73 sqM) Est GFR (CKD-EPI)NonAf (>60 ml/min/1.73 sqM) Glucose (74-99) mg/dL Calcium (8.4-10.2) mg/dL Total Bilirubin (0.2-1.3) mg/dL AST (14-36) U/L ALT (4-34) U/L Alkaline Phosphatase (38-126) U/L Troponin I <0.012 (0.000-0.034) ng/mL Total Protein (6.3-8.2) g/dL Albumin (3.5-5.0) g/dL Disposition Clinical Impression: TIA (transient ischemic attack), Headache Disposition: ADMITTED IP TO THIS HOSP Condition: Stable Is patient prescribed a controlled substance at d/c from ED?: No
[2021-07-25 22:21] LABS: Partial Thromboplastin Time 22.1 sec (22.0-30.0); Prothrombin Time 10.5 sec (9.0-12.0)
[2021-07-25] MEDS ORDERED: NALOXONE 0.4 MG/ML 1 ML VIAL IV PRN (23:35)
--- NOTE | 2021-07-26 01:58 | P.HPIM ---
History of Present Illness H&P Date: 07/25/21 The patient is a 60-year-old female with a PMH of congenital deafness, hypothyroidism, type II DM, status post left hip replacement, who presents to the emergency room with complaints of headache. No history was obtained using video american sign language interpreter as well as the son at the bedside via [place] sign language. The patient was reportedly in her usual state of health until around 5 PM when she developed a throbbing diffuse 10 out of 10 headache, largely in the right side of her head. She reports never having a headache of this severity in the past but does suffer from chronic headaches. Shortly after onset, the patient developed left arm tingling. She denies any additional complaints. Denied experiencing weakness, visual disturbances, lightheadedness. Also denied gait instability, abdominal pain, nausea, vomiting, fever, chills, cough. Reports that her headache has persisted, and was 7 out of 10 at the time of interview. Also reports ongoing left arm tingling, from the tip of the fingers to the shoulder. The patient normally ambulates without assistance at home but uses a mobility scooter when outside. The patient's NIH score in the emergency room was 0. CT brain in the emergency room was unremarkable. Chest x-ray revealed coarse lung markings without consolidation or heart failure. T evaluation was remarkable for diabetes count 13.9, BUN 23, creatinine 1.2 (at baseline), and troponin less than 0.012. Review of systems: Pertinent positives and negatives as discussed in HPI, a complete review of systems was performed and all other systems are negative. Physical examination: General: non toxic, no distress, appears at stated age, morbidly obese Derm: Abdominal folds mildly erythematous, moist, and foul-smelling Head: atraumatic, normocephalic, symmetric Eyes: EOMI, no lid lag, anicteric sclera, pupils equal round reactive to light ENT: Nose and ears atraumatic, no thrush, no pharyngeal erythema Neck: No thyromegaly, no cervical lymphadenopathy, trachea midline, supple Mouth: no lip lesion, mucus membranes moist Cardiovascular: S1S2 reg, no murmur, positive posterior tibial pulse bilateral, no edema, capillary refill less than 2 seconds Lungs: CTA bilateral, no rhonchi, no rales , no accessory muscle use Abdominal: Obese, soft, nontender to palpation, no guarding, no appreciable organomegaly, normal bowel sounds Ext: no gross muscle atrophy, muscle strength 4 out of 5 of left lower extremity, strength 5 out of 5 elsewhere grossly, no contractures, Neuro: CN II-XI grossly intact, light touch intact all 4 extremities, finger to nose within normal limits, Psych: Alert, oriented, appropriate affect Assessment/plan Headache with left arm numbness, complex migraine versus TIA -Neurology consult -Neuro checks -Echocardiogram -Carotid Doppler Intertrigo -Nystatin powder Leukocytosis, likely due to acute stress her -No signs of active infection at this time aside from intertrigo -Monitor for now Chronic conditions: Type II DM, hypothyroidism, chronic kidney disease -Continue with home meds -Insulin sliding scale and blood glucose monitoring -Check A1c DVT prophylaxis -Heparin Subcu The patient is admitted with an anticipated less than 2 midnight stay for evaluation of headache CODE STATUS: Full Code Discussed with: Patient Anticipated discharge date: in am Anticipated discharge place: Home Past Medical History Past Medical History: Diabetes Mellitus, Hearing Disorder / Deafness, Thyroid Disorder Additional Past Medical History / Comment(s): DEAF, KIDNEY STONES, HX OF ELEVATED POTASSIUM, left leg and foot nerve tingling. History of Any Multi-Drug Resistant Organisms: None Reported Past Surgical History: Cholecystectomy, Joint Replacement, Orthopedic Surgery Additional Past Surgical History / Comment(s): RT ELBOW SX, TOTAL LEFT HIP, kidney stone surgery X2. Past Anesthesia/Blood Transfusion Reactions: No Reported Reaction Additional Past Anesthesia/Blood Transfusion Reaction / Comment(s): REQUESTS TO BE AWAKENED GENTLY. Past Psychological History: No Psychological Hx Reported Smoking Status: Never smoker Past Alcohol Use History: None Reported Past Drug Use History: None Reported - Past Family History Mother History Unknown: Yes Family Medical History: No Reported History Additional Family Medical History / Comment(s): . Medications and Allergies Home Medications Medication Instructions Recorded Confirmed Type metFORMIN HCL [Glucophage] 1,000 mg PO BID 01/30/17 03/02/20 History Cholecalciferol [Vitamin D3 (25 1,000 unit PO DAILY 11/21/19 03/02/20 History Mcg = 1000 Iu)] Levothyroxine Sodium [Levoxyl] 150 mcg PO DAILY 01/24/20 03/02/20 History glipiZIDE [Glucotrol] 10 mg PO AC-BID 01/24/20 03/02/20 History Cephalexin [Keflex] 500 mg PO Q8HR #15 cap 01/27/20 03/02/20 Rx Tamsulosin [Flomax] 0.4 mg PO DAILY #30 cap 01/27/20 03/02/20 Rx traMADol HCL [Ultram] 50 mg PO Q6HR PRN 3 Days #8 tab 03/02/20 Rx Allergies Allergy/AdvReac Type Severity Reaction Status Date / Time No Known Allergies Allergy Verified 02/27/20 15:59 Physical Exam Vitals: Vital Signs Pulse Resp BP Pulse Ox 07/25/21 20:50 83 18 174/88 97 Intake and Output 07/25/21 07/25/21 07/26/21 14:59 22:59 06:59 Other: Weight 108.862 kg Results CBC & Chem 7: 07/25/21 21:34 07/25/21 21:34 Labs: Abnormal Lab Results - Last 24 Hours (Table) 07/25/21 07/25/21 Range/Units 21:34 21:34 WBC 13.9 H (3.8-10.6) k/uL MCHC 29.9 L (31.0-37.0) g/dL Neutrophils # 11.6 H (1.3-7.7) k/uL BUN 23 H (7-17) mg/dL Creatinine 1.22 H (0.52-1.04) mg/dL Glucose 116 H (74-99) mg/dL AST 48 H (14-36) U/L
[2021-07-26] MEDS ORDERED: ASPIRIN 325 MG TAB PO STA (03:37)
[2021-07-26] MEDS: ACETAMINOPHEN TAB 325 MG TAB PO PRN ×3 (04:14→22:10)
[2021-07-26 06:41] LABS: HCT 37.2 % (34.0-46.0); HGB 11.4 gm/dL (11.4-16.0); Hypochromasia Slight; MCH 29.8 pg (25.0-35.0); MCHC 30.6 g/dL (31.0-37.0); MCV 97.3 fL (80.0-100.0); Mean Platelet Volume 8.5; Platelet Count 167 k/uL (150-450); RBC 3.83 m/uL (3.80-5.40); RDW 14.3 % (11.5-15.5); WBC 9.9 k/uL (3.8-10.6)
[2021-07-26 07:02] LABS: Glucose,Whole Blood 197 mg/dL (75-99)
[2021-07-26 07:04] LABS: African American GFR (CKD) 54 (>60 ml/min/1.73 sqM); Anion Gap 10 mmol/L; Blood Urea Nitrogen 27 mg/dL (7-17); Calcium 8.2 mg/dL (8.4-10.2); Carbon Dioxide 22 mmol/L (22-30); Chloride 109 mmol/L (98-107); Glucose 200 mg/dL (74-99); Non-African American GFR(CKD) 46 (>60 ml/min/1.73 sqM); Sodium 141 mmol/L (137-145)
[2021-07-26 07:05] LABS: Potassium 5.3 mmol/L (3.5-5.1)
[2021-07-26] MEDS: INSULIN ASPART (NovoLOG) 100 UNIT/ML VIAL SQ SCH ×4 (09:14→18:59)
[2021-07-26] MEDS: HEPARIN SODIUM,PORCINE/PF 5,000 UNIT/0.5 ML SYRINGE SQ SCH ×2 (09:14→18:59)
[2021-07-26] MEDS: CHOLECALCIFEROL 25 MCG (1000 IU) TABLET PO SCH (09:14)
[2021-07-26] MEDS: LEVOTHYROXINE 75 MCG TAB PO SCH (09:14)
[2021-07-26] MEDS: ESCITALOPRAM 10 MG TAB PO SCH (09:14)
[2021-07-26] MEDS: NYSTATIN 100,000 UNIT/GM POWD 15 GM TOPICAL SCH ×2 (10:01→21:11)
--- NOTE | 2021-07-26 10:47 | US ---
EXAMINATION TYPE: US carotid duplex BILAT DATE OF EXAM: 07/26/2021 COMPARISON: NONE CLINICAL HISTORY: TIA. Poor historian. Patient is deaf. EXAM MEASUREMENTS: RIGHT: Peak Systolic Velocity (PSV) cm/sec ----- Right CCA: 54.8 ----- Right ICA: 72.3 ----- Right ECA: 91.8 ICA/CCA ratio: 1.3 RIGHT: End Diastole cm/sec ----- Right CCA: 15.3 ----- Right ICA: 27.0 ----- Right ECA: 12.8 LEFT: Peak Systolic Velocity (PSV) cm/sec ----- Left CCA: 64.7 ----- Left ICA: 71.3 ----- Left ECA: 94.1 ICA/CCA ratio: 1.1 LEFT: End Diastole cm/sec ----- Left CCA: 17.5 ----- Left ICA: 17.5 ----- Left ECA: 11.7 VERTEBRALS (direction of flow): Right Vertebral: Antegrade Left Vertebral: Antegrade Rhythm: Normal No plaque, wall thickening, elevated velocities or significant stenosis visualized on todays exam. IMPRESSION: No hemodynamically significant stenosis in either internal carotid artery. Criteria for Assigning % of Stenosis / Diameter reduction (Estimation based on the indirect measurements of the internal carotid artery velocities (ICA PSV). 1. Normal (no stenosis)=ICA PSV < 125 cm/s: ratio < 2.0: ICA EDV<40 cm/s. 2. Less than 50% stenosis=ICA PSV < 125 cm/s: ratio < 2.0: ICA EDV<40 cm/s. 3. 50 to 69% stenosis=ICA PSV of 125 to 230 cm/s: ration 2.0 ? 4.0: ICA EDV 40-100 cm/s. 4. Greater than 70% stenosis to near occlusion= ICA PSV > 230 cm/s: ratio > 4.0: ICA EDV > 100 cm/s. 5. Near occlusion= ICA PSV velocities may be low or undetectable: variable ratio and ICA EDV. 6. Total occlusion=unable to detect flow.
--- NOTE | 2021-07-26 10:57 | P.CNNES ---
History of Present Illness Consult date: 07/26/21 Requesting physician: Abner Goldstein Reason for Consult: headache with left hand numbness History of Present Illness: This is a 60-year-old woman with medical history of congenital deafness, hypothyroidism, type II DM, status left hip replacedm presented emergency department on 07/25/2021 the pro complained of headache. The patient's son is at bedside and he helps with a history. It seems that the patient was in her usual state of health until around 3- 5 PM yesterday when she developed a throbbing headache 10 out of 10 over the right temporal region. She denies of any radiation of headache. Denies nausea, vomiting, photophobia. Denies any visual disturbance. Patient also shortly after has a developed left arm tingling from left hand up to left shoulder. She denies any weakness. She has some chronic minor headaches in past but not to this severity. Currently the headache is 3/10 and numbness over the left side is improving but not resolved. Denies of neck pain. Of note patient has chronic left lower extremity pain and was told due to her back pain. Some other workup in the hospital consisted of: Initial vital signs is a blood pressure of 174/80, heart rate of 83, respiratory of 18, temperature of 98.8 Fahrenheit oral and pulse ox of 97% at room air. Otherwise blood pressure has been in the 120s over 70s. CT of the head is reported as negative on has had computed tomography scan. I personally reviewed the CT of the head and there is no acute or subacute ischemia. Initial white blood cell is 13.9 slightly neutrophilic but the repeated is 9.9 Creatinine is 1.2 to an the repeat is 1.28. Initial potassium is 4.9 repeated is 5.3. AST of 48 ALT is 28. Review of Systems Review of system: The 12 point system was reviewed and apparent positive and negative per HPI. Past Medical History Past Medical History: Diabetes Mellitus, Hearing Disorder / Deafness, Thyroid Disorder Additional Past Medical History / Comment(s): DEAF, KIDNEY STONES, HX OF ELEVATED POTASSIUM, left leg and foot nerve tingling. History of Any Multi-Drug Resistant Organisms: None Reported Past Surgical History: Cholecystectomy, Joint Replacement, Orthopedic Surgery Additional Past Surgical History / Comment(s): RT ELBOW SX, TOTAL LEFT HIP, kidney stone surgery X2. Past Anesthesia/Blood Transfusion Reactions: No Reported Reaction Additional Past Anesthesia/Blood Transfusion Reaction / Comment(s): REQUESTS TO BE AWAKENED GENTLY. Past Psychological History: No Psychological Hx Reported Smoking Status: Never smoker Past Alcohol Use History: None Reported Past Drug Use History: None Reported - Past Family History Mother History Unknown: Yes Family Medical History: No Reported History Additional Family Medical History / Comment(s): . Medications and Allergies Home Medications Medication Instructions Recorded Confirmed Type metFORMIN HCL [Glucophage] 1,000 mg PO BID-W/MEALS 01/30/17 07/26/21 History Cholecalciferol [Vitamin D3 (25 50 mcg PO DAILY 11/21/19 07/26/21 History Mcg = 1000 Iu)] Levothyroxine Sodium [Levoxyl] 150 mcg PO DAILY 01/24/20 07/26/21 History Atorvastatin Calcium [Lipitor] 10 mg PO HS 07/26/21 07/26/21 History Escitalopram [Lexapro] 10 mg PO DAILY 07/26/21 07/26/21 History Insulin Glargine,Hum.rec.anlog 20 unit SQ HS 07/26/21 07/26/21 History [Lantus Solostar Pen] Insulin Lispro [humaLOG Kwikpen] 8 unit SQ AC-TID 07/26/21 07/26/21 History Linagliptin [Tradjenta] 5 mg PO DAILY 07/26/21 07/26/21 History Allergies Allergy/AdvReac Type Severity Reaction Status Date / Time No Known Allergies Allergy Verified 07/26/21 07:38 Physical Examination - Vital Signs Vital Signs: Vital Signs Temp Pulse Pulse Resp BP BP Pulse Ox 07/26/21 07:00 98 F 78 17 122/77 96 07/26/21 01:38 98.5 F 79 17 126/78 95 07/25/21 23:59 98.8 F 90 18 142/55 97 07/25/21 20:50 83 18 174/88 97 Intake and Output 07/25/21 07/26/21 07/26/21 22:59 06:59 14:59 Intake Total 250 Balance 250 Intake: Oral 250 Other: Weight 108.862 kg 108.862 kg GENERAL: The patient is lying in bed and is in mild acute distress. CHEST: The heart rate is regular rate rhythm. No murmurs to auscultation. No carotid bruit bilaterally. LUNG: Clear to auscultation bilaterally no wheezing noted throughout. Not labored breathing. ABDOMEN/GI: Bowel sounds present in all 4 quadrants. No tenderness to palpation throughout. NEUROLOGICAL: Examination was assisted by her son with helps with sign language since patient is deaf. Higher mental function: The patient is awake, alert, oriented to self, place and time. Patient is following commands. No aphasia and no neglect. Cranial nerves: The pupils are round, equal and reactive to light and accommodation. Visual ramirez are full to confrontation throughout. Extraocular movement is intact no nystagmus is noted. Facial sensation is normal to touch throughout. The facial strength is normal throughout. Tongue is midline and moved [id number] without any difficulty. Shoulder shrug is normal bilaterally. Motor: The strength is 5 over 5 throughout uppers. Could not assess lowers but moving above gravity (Moving right > left. Has chronic pain in lowers predominately left). Normal tone and bulk. Cerebellum: Normal finger to nose heel to chin bilaterally. Sensation: Sensation is normal to touch throughout. Reflexes (right/left): 2+ throughout uppers but not assess in lowers because of chronic pain and she refused (has pain in left lower predominately and was told she has due to low back pain). Plantars Could not assess because of her refusal. Results - Laboratory Findings CBC and BMP: 07/26/21 06:19 07/26/21 06:19 Abnormal Lab Findings: Abnormal Labs 07/25/21 07/25/21 07/26/21 21:34 21:34 06:19 WBC 13.9 H MCHC 29.9 L 30.6 L Neutrophils # 11.6 H Potassium Chloride BUN 23 H Creatinine 1.22 H Glucose 116 H POC Glucose (mg/dL) Hemoglobin A1c Calcium AST 48 H 07/26/21 07/26/21 07/26/21 06:19 06:19 07:01 WBC MCHC Neutrophils # Potassium 5.3 H Chloride 109 H BUN 27 H Creatinine 1.28 H Glucose 200 H POC Glucose (mg/dL) 197 H Hemoglobin A1c 7.3 H Calcium 8.2 L AST Assessment and Plan Assessment: Acute cephalgia with left arm tingling: Unsure exact etiology. Rule out acute ischemic stroke vs complicated migraine.---symptoms improving Congenital deafness Hypothyroidism Type II Diabetes Status post left hip replacement Chronic low back pain with pain in left lower extremity. Plan: Recommend MRI of the brain with and without as well as MRA of the head. She was given aspirin 325 once the primary team. I'll not start the patient on antiplatelet unless there is stroke on imaging or stroke is high on differential and other factors are rule out. She is on her home medication of Lipitor 10 mg daily at bedtime which was restarted that. 2-D echo, carotid duplex is ordered by the primary team is pending I ordered the lipid panel Every 4 hours neuro checks We'll defer the rest of the medical management to primary team Recommend patient to follow-up with neurologist as outpatient for her chronic low back pain and neuropathy in left lower extremity. The plan is discussed with patient with assistance of her son (who is able to relay message to patient thru sign language). Also plan is discussed with primary team and her nurse. Thank you for consultation. Ariel Tracey M.D. Neuro-hospitalist Time with Patient: Greater than 30
[2021-07-26 11:54] LABS: Glucose,Whole Blood 179 mg/dL (75-99)
--- NOTE | 2021-07-26 11:54 | CA ---
Transthoracic Echo Report Name: Kelly Sanchez Age: 60 Gender: F : 1960 Exam Date: 07/26/2021 08:08 Exam Location: [facility] Ht (in): 60 Wt (lb): 240 Ordering Physician: Renato Medel MD Attending/Referring Phys: Loss Prevention Analyst Rhina Brewer RDCS Procedure CPT: Indications: tia Cardiac Hx: No cardiac hx. Hx of diabetes. Technical Quality: Poor Contrast 1: Lumason Total Dose (mL): 1 Contrast 2: Total Dose (mL): MEASUREMENTS (Male / Female) Normal Values 2D ECHO LV Diastolic Diameter PLAX 5.4 cm 4.2 - 5.9 / 3.9 - 5.3 cm LV Systolic Diameter PLAX 3.1 cm IVS Diastolic Thickness 1.1 cm 0.6 - 1.0 / 0.6 - 0.9 cm LVPW Diastolic Thickness 1.0 cm 0.6 - 1.0 / 0.6 - 0.9 cm LV Relative Wall Thickness 0.4 LA Volume 49.0 cm??? 18 - 58 / 22 - 52 cm??? M-MODE Aortic Root Diameter MM 3.0 cm LA Systolic Diameter MM 3.1 cm LA Ao Ratio MM 1.1 MV E Point Septal Separation 2.4 cm AV Cusp Separation MM 1.6 cm DOPPLER AV Peak Velocity 136.3 cm/s AV Peak Gradient 7.4 mmHg MV Peak Velocity 190.9 cm/s MV Peak Gradient 14.6 mmHg MV Mean Velocity 115.8 cm/s MV Mean Gradient 6.6 mmHg MV Velocity Time Integral 65.2 cm MV Area PHT 2.4 cm??? MR Peak Velocity 269.3 cm/s MR Peak Gradient 29.0 mmHg Mitral E Point Velocity 115.1 cm/s Mitral A Point Velocity 131.2 cm/s Mitral E to A Ratio 0.9 MV Deceleration Time 324.6 ms MV E' Velocity 6.5 cm/s Mitral E to MV E' Ratio 17.8 TR Peak Velocity 196.3 cm/s TR Peak Gradient 15.4 mmHg Right Ventricular Systolic Press 19.0 mmHg FINDINGS Left Ventricle Mildly increased septal wall thickness. Mildly increased posterior wall thickness. Mildly increased left ventricular diastolic diameter. Left ventricular ejection fraction is estimated at 55-60 %. Right Ventricle The right ventricle is normal in size and function. Right Atrium The right atrium is normal in size. Left Atrium The left atrium is normal in size. Mitral Valve Mitral valve thickened. Mitral annular calcification. Mild mitral regurgitation. Mild mitral stenosis. Aortic Valve Structurally normal aortic valve without significant sclerosis or stenosis. There is no aortic regurgitation. Tricuspid Valve Structurally normal tricuspid valve without significant stenosis. Pulmonary artery systolic pressure is normal. Trace tricuspid regurgitation. Pulmonic Valve Structurally normal pulmonic valve without significant stenosis. There is no pulmonic regurgitation. Pericardium Normal pericardium without effusion. Aorta Normal aortic root dimension. CONCLUSIONS Left ventricular hypertrophy with normal LV systolic function My clinic calcification with mild mitral regurgitation and mild mitral stenosis Left atrium has normal size Previewed by: Dr. Satnam Bender MD (Electronically Signed) Final Date: 26 Jul 2021 11:53
--- NOTE | 2021-07-26 15:41 | P.PN ---
Subjective Progress Note Date: 07/26/21 Hospital course: Patient is a very pleasant 60-year-old female with a past medical history of congenital deafness, hypothyroidism, type II insulin-dependent diabetes mellitus, stage II CKD, and neuropathy of left leg and foot. She presented to the emergency department with a chief complaint of sudden onset headache described as a throbbing sensation to right side of head accompanied by left upper extremity numbness and tingling. She was seen and fully evaluated. She was found to have mild leukocytosis with WBC count of 13.9 and BNP consistent with stage IIc KD with BUN of 23, creatinine 1.22, and GFR 49 with baseline creatinine of 1.2. Troponin was negative at less than 0.012. Patient underwent CT brain which was negative for acute intercranial process. Chest x-ray was negative for acute cardiopulmonary process. Patient was admitted under services with consultation to neurology. Echocardiogram completed revealing preserved EF of 55-60% with mild mitral stenosis and regurgitation. Carotid Dopplers completed showing no hemodynamically significant stenosis in either internal carotid artery. Patient is scheduled to undergo MRI of brain with and without contrast and MRA of head and neck later today. Physical exam: Patient seen and fully evaluated at bedside this morning. Patient's son at bedside translating via [place] sign language per patient's written request. Patient reports improvement and had pain but states she continues to have mild pain to the right side of her head still described as a late throbbing sensation rating 3-5/10 at this time and continues to have mild numbness and tingling down left arm and left hand. She denies having any changes in her vision, dizziness, lightheadedness, dysphasia, difficulties with memory, chest pain or palpitations, shortness of breath, or any other complaints at this time. Vital signs reviewed and stable. General: Nontoxic, no distress and appears stated age. Derm: Skin warm and dry, normal coloration for ethnicity. Head: Atraumatic, normocephalic and symmetric. Eyes: EOMs intact, no lid lag, and anicteric sclera Mouth: no lip lesions, mucus membranes moist Cardiovascular: regular rate and rhythm with normal S1S2, no murmur, positive posterior tibial pulses bilaterally, and cap refill < 2 seconds. Lungs: Respirations even, regular, and unlabored on room air. Lungs CTA bilaterally, no rhonchi, no rales, no wheezing, and no accessory muscle usage. Abdominal: soft, nontender to palpation, no guarding, no appreciable organomegaly Ext: ROM intact. No gross muscle atrophy, no edema, no contractures Neuro: Speech clear, face symmetrical and CN II-XII grossly intact with no noted focal neuro deficits Psych: Alert and oriented to person, place, time, and situation. Appropriate and pleasant affect. Assessment and Plan of Care: Headache with neuro deficits consisting of left upper extremity numbness and tingling, complex migraine versus acute ischemic CVA -CT negative for acute intercranial process. -Blood glucose levels stable -Neurology following, appreciate further recommendations -Neuro checks -Telemetry monitoring -Echocardiogram revealing normal EF 55-60% with mild mitral stenosis and mild mitral regurgitation. -Carotid Dopplers negative showing no significant stenosis in either internal carotid artery. -Patient is scheduled to undergo MRI of brain with and without contrast and MRA of head and neck later today. -Lipid profile Intertrigo -Continue nystatin powder and keep abdominal folds clean and dry. Leukocytosis, resolved Hypothyroidism -Continue daily medication regimen with levothyroxine. Insulin-dependent diabetes mellitus -Patient placed on glycemic protocol and to continue home medication regimen with fixed dose insulin as well as long-acting. CODE STATUS: Full code DVT prophylaxis: Heparin Discussed with: patient, patient's son, neurologist and RN Anticipated discharge date: pending completion of MRI Anticipated discharge place: home A total of 39 minutes was spent on the care of this complex patient more than 50% of the time was spent in counseling and care coordination. I reviewed the documentation as provided by the JOSE LUIS above, who is the original author of this note. I agree with the documented assessment and plan, with the following changes: none Objective - Vital Signs Vital signs: Vital Signs Temp 98 F 07/26/21 07:00 Pulse 78 07/26/21 07:00 Resp 17 07/26/21 07:00 BP 122/77 07/26/21 07:00 Pulse Ox 96 07/26/21 07:00 Intake & Output 07/25/21 07/26/21 07/26/21 18:59 06:59 18:59 Intake Total 250 Balance 250 Weight 108.862 kg Intake: Oral 250 - Labs CBC & Chem 7: 07/26/21 06:19 07/26/21 06:19 Labs: Abnormal Lab Results - Last 24 Hours (Table) 07/25/21 07/25/21 07/26/21 Range/Units 21:34 21:34 06:19 WBC 13.9 H (3.8-10.6) k/uL MCHC 29.9 L 30.6 L (31.0-37.0) g/dL Neutrophils # 11.6 H (1.3-7.7) k/uL Potassium (3.5-5.1) mmol/L Chloride (98-107) mmol/L BUN 23 H (7-17) mg/dL Creatinine 1.22 H (0.52-1.04) mg/dL Glucose 116 H (74-99) mg/dL POC Glucose (mg/dL) (75-99) mg/dL Calcium (8.4-10.2) mg/dL AST 48 H (14-36) U/L 07/26/21 07/26/21 Range/Units 06:19 07:01 WBC (3.8-10.6) k/uL MCHC (31.0-37.0) g/dL Neutrophils # (1.3-7.7) k/uL Potassium 5.3 H (3.5-5.1) mmol/L Chloride 109 H (98-107) mmol/L BUN 27 H (7-17) mg/dL Creatinine 1.28 H (0.52-1.04) mg/dL Glucose 200 H (74-99) mg/dL POC Glucose (mg/dL) 197 H (75-99) mg/dL Calcium 8.2 L (8.4-10.2) mg/dL AST (14-36) U/L
[2021-07-26] MEDS: SODIUM CHLORIDE 0.9% 1,000 ML IV SCH (17:09)
[2021-07-26 17:15] LABS: Glucose,Whole Blood 155 mg/dL (75-99)
--- NOTE | 2021-07-26 19:08 | MR ---
EXAMINATION TYPE: MR MRA/MRV head wo con DATE OF EXAM: 07/26/2021 COMPARISON: None HISTORY: Headache, LUE numbness and tingling. MR angiographic and venographic images of the brain were obtained without contrast. There is arterial flow in both distal internal carotid arteries. There is arterial flow in the verteb ral basilar artery system. Basilar artery fills from the left side. There is diminutive right distal vertebral artery. There is arterial flow in the anterior middle and posterior cerebral arteries bilaterally. No evidenc e of hemodynamic stenosis. No mass effect. No evidence of intracranial aneurysm. Venographic images show normal signal pattern. No evidence of thrombosis. No filling defect. There is normal venous signal pattern of the sagittal and transverse and sigmoid sinuses. Straight sinus appe ars normal. IMPRESSION: Negative MR angiography of the brain. Negative MR venogram of the brain.
--- NOTE | 2021-07-26 19:35 | MR ---
EXAMINATION TYPE: MR brain wo/w con DATE OF EXAM: 07/26/2021 COMPARISON: None HISTORY: Headache, LUE numbness and tingling. CONTRAST: Standard multiplanar, multisequence MRI departmental protocol images were obtained without contrast a nd with 11 mL intravenous Gadavist gadolinium contrast. Diffusion images show no evidence of an acute infarct. Ventricles are of fairly normal size. There is no mass effect or midline shift. There is no sign of intracranial hemorrhage. There is mild cerebral cortical atrophy. There are some scattered white matter high signal foci around the lateral ventricles measure up to 7 mm. Total number is approximately 10. There is also slight increased signal in the left and right consuelo e of the good. The cerebellum is intact. Corpus callosum is intact. Sella turcica is intact. There is no evidence of orbital mass. Contrast images show normal enhancement of the venous sinuses. There is no pathologic enhancement. IMPRESSION: Patchy white matter signal changes consistent with microvascular ischemia or demyelinating disease. M ild cerebral atrophy.
[2021-07-26] MEDS ORDERED: ATORVASTATIN 10 MG TAB PO SCH (21:00)
[2021-07-26] MEDS ORDERED: INSULIN DETEMIR (LEVEMIR) 100 UNIT/ML SYR SQ SCH (21:00)
[2021-07-26 21:11] LABS: Glucose,Whole Blood 179 mg/dL (75-99)
[2021-07-27] MEDS: HEPARIN SODIUM,PORCINE/PF 5,000 UNIT/0.5 ML SYRINGE SQ SCH ×2 (01:13→07:23)
[2021-07-27] MEDS: SODIUM CHLORIDE 0.9% 1,000 ML IV SCH (01:14)
[2021-07-27] MEDS: ACETAMINOPHEN TAB 325 MG TAB PO PRN ×2 (04:07→09:11)
[2021-07-27] MEDS: LEVOTHYROXINE 75 MCG TAB PO SCH (05:29)
[2021-07-27 06:53] LABS: Glucose,Whole Blood 215 mg/dL (75-99)
[2021-07-27] MEDS: INSULIN ASPART (NovoLOG) 100 UNIT/ML VIAL SQ SCH (07:23)
[2021-07-27 08:15] VITALS: BP 144/78; PULSE 80; RESP 20; TEMP 97.6
[2021-07-27] MEDS ORDERED: ASPIRIN 81 MG PO SCH (09:00)
[2021-07-27] MEDS: NYSTATIN 100,000 UNIT/GM POWD 15 GM TOPICAL SCH (09:11)
[2021-07-27] MEDS: ESCITALOPRAM 10 MG TAB PO SCH (09:11)
[2021-07-27] MEDS: CHOLECALCIFEROL 25 MCG (1000 IU) TABLET PO SCH (09:11)
[2021-07-27 09:37] LABS: Basophils # (A) 0.06 X 10*3/uL (0.00-0.10); Basophils % (A) 0.6 %; Eosinophils # (A) 0.27 X 10*3/uL (0.04-0.35); Eosinophils % (A) 2.8 %; HGB 12.4 g/dL (12.0-15.0); Immature Grans, Automated 0.4 %; Lymphocytes # (A) 1.07 X 10*3/uL (0.90-5.00); Lymphocytes % (A) 11.3 %; MCH 29.1 pg (27.0-32.0); MCHC 30.2 g/dL (32.0-37.0); MCV 96.2 fL (80.0-97.0); Mean Platelet Volume 12.1 fL (9.5-12.2); Monocytes # (A) 0.61 X 10*3/uL (0.20-1.00); Monocytes % (A) 6.4 %; NRBC Per 100 WBC 0 /100 WBCS (0.0-0.0); Neutrophils # (A) 7.43 X 10*3/uL (1.80-7.70); Neutrophils % (A) 78.5 %; Platelet Count 210 X 10*3/uL (140-440); RBC 4.26 X 10*6/uL (4.10-5.20); RDW 15.1 % (11.5-14.5); WBC 9.48 X 10*3/uL (4.50-10.00)
[2021-07-27] MEDS ORDERED: KETOROLAC 15 MG/ML 1 ML VIAL IVP STA (10:11)
[2021-07-27] MEDS ORDERED: PROCHLORPERAZINE INJ 10 MG/2 ML VIAL IVP STA (10:12)
[2021-07-27] MEDS ORDERED: diphenhydrAMINE 50 MG/ML 1 ML VIAL IVP STA (10:12)
--- NOTE | 2021-07-27 10:19 | P.DS ---
Providers Date of admission: 07/25/21 23:35 Expected date of discharge: 07/27/21 Attending physician: Renato Medel MD Consults: 07/26/21 09:39 Consult Physician Routine Consulting Provider: Ariel Tracey Consult Reason/Comments: headache with left hand numbness Do you want consulting provider notified?: Yes Primary care physician: Stated None Hospital Course: Discharge Diagnosis: Complex migraine, patient started on daily aspirin 81 mg along with Topamax 25 mg twice daily. Recommend outpatient follow-up with neurology in 1-2 weeks. -CT negative for acute intercranial process. -Echocardiogram revealing normal EF 55-60% with mild mitral stenosis and mild mitral regurgitation. -Carotid Dopplers negative showing no significant stenosis in either internal carotid artery. -MRA head and neck negative for acute process. -MRI revealing patchy white matter changes consistent with microvascular ischemia or demyelinating disease, recommend outpatient follow-up with neurology and continuation of daily aspirin. Intertrigo, Continue nystatin powder and keep abdominal folds clean and dry. Leukocytosis, resolved Hypothyroidism, Continue daily medication regimen with levothyroxine. Insulin-dependent diabetes mellitus, Patient placed on glycemic protocol and to continue home medication regimen with fixed dose insulin as well as long-acting. Congenital deafness Hospital Course: Patient is a very pleasant 60-year-old female with a past medical history of congenital deafness, hypothyroidism, type II insulin-dependent diabetes mellitus, stage II CKD, and neuropathy of left leg and foot. She presented to the emergency department with a chief complaint of sudden onset headache descr ibed as a throbbing sensation to right side of head accompanied by left upper extremity numbness and tingling. She was seen and fully evaluated. She was found to have mild leukocytosis with WBC count of 13.9 and BNP consistent with stage IIc KD with BUN of 23, creatinine 1.22, and GFR 49 with baseline creatinine of 1.2. Troponin was negative at less than 0.012. Patient underwent CT brain which was negative for acute intercranial process. Chest x-ray was negative for acute cardiopulmonary process. Patient was admitted under services with consultation to neurology. Echocardiogram completed revealing preserved EF of 55-60% with mild mitral stenosis and regurgitation. Carotid Dopplers completed showing no hemodynamically significant stenosis in either internal carotid artery. MRA head and neck negative for acute process. MRI revealing patchy white matter changes consistent with microvascular ischemia or demyelinating disease, recommend outpatient follow-up with neurology and contin uation of daily aspirin and starting Topamax 25 mg twice daily. Patient reports continued headache, however states improvement and feels as though she is ready to go home. She states for resolution of previously reported left arm and hand numbness and tingling. All communication completed this morning written with pen and paper. Vital signs reviewed and stable. Pt as medically stable for discharge home at this time. Physical exam: Vital signs reviewed and stable. General: Nontoxic, no distress and appears stated age. Derm: Skin warm and dry, normal coloration for ethnicity. Head: Atraumatic, normocephalic and symmetric. Eyes: EOMs intact, no lid lag, and anicteric sclera Mouth: no lip lesions, mucus membranes moist Cardiovascular: regular rate and rhythm with normal S1S2, no murmur, positive posterior tibial pulses bilaterally, and cap refill < 2 seconds. Lungs: Respirations even, regular, and unlabored on room air. Lungs CTA bila terally, no rhonchi, no rales, no wheezing, and no accessory muscle usage. Abdominal: soft, nontender to palpation, no guarding, no appreciable organomegaly Ext: ROM intact. No gross muscle atrophy, no edema, no contractures Neuro: Face symmetrical and CN II-XII grossly intact with no noted focal neuro deficits Psych: Alert and oriented to person, place, time, and situation. Appropriate and pleasant affect. A total of 38 minutes of time were spent preparing this complex discharge summary. Pt was discharged on 07/27/21 at 10:17 AM I reviewed the documentation as provided by the JOSE LUIS above, who is the original author of this note. I agree with the documented assessment and plan, with the following changes: none Patient Condition at Discharge: Stable Plan - Discharge Summary Discharge Rx Participant: No New Discharge Prescriptions: New Aspirin 81 mg PO DAILY 30 Days #30 tab Nystatin 100,000 Unit/gm Powd [Mycostatin Powder] 1 applic TOPICAL BID 30 Days #1 dispenser Topiramate [Topamax] 25 mg PO BID 30 Days #60 tab Continue metFORMIN HCL [Glucophage] 1,000 mg PO BID-W/MEALS Cholecalciferol [Vitamin D3 (25 Mcg = 1000 Iu)] 50 mcg PO DAILY Levothyroxine Sodium [Levoxyl] 150 mcg PO DAILY Atorvastatin Calcium [Lipitor] 10 mg PO HS Insulin Glargine,Hum.rec.anlog [Lantus Solostar Pen] 20 unit SQ HS Insulin Lispro [humaLOG Kwikpen] 8 unit SQ AC-TID Escitalopram [Lexapro] 10 mg PO DAILY Linagliptin [Tradjenta] 5 mg PO DAILY Discharge Medication List metFORMIN HCL [Glucophage] 1,000 mg PO BID-W/MEALS 01/30/17 [History] Cholecalciferol [Vitamin D3 (25 Mcg = 1000 Iu)] 50 mcg PO DAILY 11/21/19 [History] Levothyroxine Sodium [Levoxyl] 150 mcg PO DAILY 01/24/20 [History] Atorvastatin Calcium [Lipitor] 10 mg PO HS 07/26/21 [History] Escitalopram [Lexapro] 10 mg PO DAILY 07/26/21 [History] Insulin Glargine,Hum.rec.anlog [Lantus Solostar Pen] 20 unit SQ HS 07/26/21 [History] Insulin Lispro [humaLOG Kwikpen] 8 unit SQ AC-TID 07/26/21 [History] Linagliptin [Tradjenta] 5 mg PO DAILY 07/26/21 [History] Aspirin 81 mg PO DAILY 30 Days #30 tab 07/27/21 [Rx] Nystatin 100,000 Unit/gm Powd [Mycostatin Powder] 1 applic TOPICAL BID 30 Days #1 dispenser 07/27/21 [Rx] Topiramate [Topamax] 25 mg PO BID 30 Days #60 tab 07/27/21 [Rx] Follow up Appointment(s)/Referral(s): Amy Bernstein MD [REFERRING] - 1 Week (Office will call you with an appointment.) Carlos Mckeon [STAFF PHYSICIAN] - 07/29/21 9:15 am Patient Instructions/Handouts: Acute Headache (DC) Activity/Diet/Wound Care/Special Instructions: Activity: As tolerated. Take breaks as needed. Diet: Heart healthy and carb consistent diet. Avoid salts, or foods with hidden salts such as canned or boxed foods and frozen dinners. Extra salt makes your heart work harder and traps the fluid in your body for longer. Special Instructions: Take all of your medications as directed and remember to keep all of your doctor's appointments and follow-up as needed. Thank you for allowing us to participate in your care, it was truly a pleasure having you for our patient!!! Discharge Disposition: HOME SELF-CARE
[2021-07-27] MEDS ORDERED: TOPIRAMATE 25 MG TAB PO SCH (10:45)
--- NOTE | 2021-07-27 11:35 | P.PN ---
Subjective Progress Note Date: 07/27/21 The patient is seen at bedside and feel she continues to have headache and it is over right side. She feels it is 10/10. MRI of the brain with and without is reported as patchy white matter signal changes consistent with microvascular ischemia or demyelinating disease. Mild cerebral atrophy. Negative MRA of the brain and negative MRV of the brain. Objective - Vital Signs Vital signs: Vital Signs Temp 97.6 F 07/27/21 07:00 Pulse 80 07/27/21 07:00 Resp 20 07/27/21 07:00 BP 144/78 07/27/21 07:00 Pulse Ox 97 07/27/21 07:00 Intake & Output 07/26/21 07/27/21 07/27/21 18:59 06:59 18:59 Intake Total 618 400 118 Balance 618 400 118 Intake: Oral 618 400 118 Other: Voiding Method Toilet Toilet # Voids 1 - Exam GENERAL: The patient is lying in bed and is in mild acute distress. NEUROLOGICAL: Higher mental function: The patient is awake, alert, oriented to self, place and time. Patient is following commands. No aphasia and no neglect. Cranial nerves: The pupils are round, equal and reactive to light and accommodation. Visual ramirez are full to confrontation throughout. Extraocular movement is intact no nystagmus is noted. Facial sensation is normal to touch throughout. The facial strength is normal throughout. Tongue is midline and moved [id number] without any difficulty. Shoulder shrug is normal bilat erally. Motor: The strength is 5 over 5 throughout uppers. Could not assess lowers but moving above gravity (Moving right > left. Has chronic pain in lowers predominately left). Normal tone and bulk. Cerebellum: Normal finger to nose heel to chin bilaterally. Sensation: Sensation is normal to touch throughout. Reflexes (right/left): 2+ throughout uppers but not assess in lowers because of chronic pain and she refused (has pain in left lower predominately and was told she has due to low back pain). Plantars Could not assess because of her refusal. SOME OF OTHER WORK-UP: Hemoglobin A1c 7.3. Carotid duplex is reported as no hemodynamically significant stenosis in either internal carotid artery. 2-D echo was reported as left ventricular hypertrophy with normal left ventricle systolic function. Left atrium has normal size. Ejection fraction is estimated at 55-60%. MRI of the brain with and without is reported as patchy white matter signal changes consistent with microvascular ischemia or demyelinating disease. Mild cerebral atrophy. I personally reviewed the MRI and it does not appear the this is due to the demylinating disease. Negative MRA of the brain and negative MRV of the brain. - Labs CBC & Chem 7: 07/27/21 05:44 07/26/21 06:19 Labs: Abnormal Lab Results - Last 24 Hours (Table) 07/26/21 07/26/21 07/26/21 Range/Units 11:52 17:14 21:10 MCHC (32.0-37.0) g/dL RDW (11.5-14.5) % POC Glucose (mg/dL) 179 H 155 H 179 H (75-99) mg/dL 07/27/21 07/27/21 Range/Units 05:44 06:51 MCHC 30.2 L (32.0-37.0) g/dL RDW 15.1 H (11.5-14.5) % POC Glucose (mg/dL) 215 H (75-99) mg/dL Assessment and Plan Assessment: Acute cephalgia with left arm tingling: Likely complicated migraine Congenital deafness Hypothyroidism Type II Diabetes Status post left hip replacement Chronic low back pain with pain in left lower extremity. Plan: MRI Brain, MRA head is negative. Started the patient on Topamax 25mg 1 tab bid and if continues to have headaches can go up to 50mg 1 tab bid. Every 4 hours neuro checks We'll defer the rest of the medical management to primary team Recommend patient to follow-up with neurologist as outpatient for her chronic low back pain and neuropathy in left lower extremity. The plan is discussed with patient with assistance of her son (who is able to relay message to patient thru sign language). Also plan is discussed with primary team and her nurse. If headaches improve patient is clear for discharge from neurological perspective. Ariel Tracey M.D. Neuro-hospitalist Time with Patient: Less than 30
[2021-07-27 12:01] LABS: Glucose,Whole Blood 245 mg/dL (75-99)
[2021-07-27 12:14] LABS: Chol/HDL Ratio 3.18 Ratio
[2021-07-27 12:24] LABS: ALT 33 U/L (8-44); AST 49 U/L (13-35); African American GFR (CKD) 71.9 (60.0-200.0); Albumin 4.1 g/dL (3.8-4.9); Albumin/Globulin Ratio 1.28 (1.60-3.17); Alkaline Phosphatase 89 U/L (41-126); Calcium 9.1 mg/dL (8.7-10.3); Chloride 102 mmol/L (96-109); Globulin 3.2 g/dL (1.6-3.3); Glucose 134 mg/dL (70-110); Non-African American GFR(CKD) 62.1 (60.0-200.0); Potassium 5.2 mmol/L (3.5-5.5); Sodium 139 mmol/L (135-145); Total Protein 7.3 g/dL (6.2-8.2)
== END 2021-07-27 12:14 | disposition home or self-care (01) ==
LOC: EC 20:47 → 6NMEDSUR 23:35
PROVIDERS: ADMIT Internal Medicine; ATTEND Internal Medicine
DX: G43.109 Migraine with aura, not intractable, without status migrainosus (principal); I05.2 Rheumatic mitral stenosis with insufficiency; G37.9 Demyelinating disease of central nervous system, unspecified; L30.4 Erythema intertrigo; D72.829 Elevated white blood cell count, unspecified; E03.9 Hypothyroidism, unspecified; I12.9 Hypertensive chronic kidney disease with stage 1 through stage 4 chronic kidney disease, or unspecified chronic kidney disease; E11.22 Type 2 diabetes mellitus with diabetic chronic kidney disease; N18.2 Chronic kidney disease, stage 2 (mild); E11.41 Type 2 diabetes mellitus with diabetic mononeuropathy; E66.01 Morbid (severe) obesity due to excess calories; Z68.42 Body mass index [BMI] 45.0-49.9, adult; G89.29 Other chronic pain; M79.605 Pain in left leg; M54.50 Low back pain, unspecified; H90.5 Unspecified sensorineural hearing loss; Z79.4 Long term (current) use of insulin; Z79.84 Long term (current) use of oral hypoglycemic drugs; Z79.890 Hormone replacement therapy; Z79.899 Other long term (current) drug therapy; Z86.73 Personal history of transient ischemic attack (TIA), and cerebral infarction without residual deficits; Z87.442 Personal history of urinary calculi; Z96.642 Presence of left artificial hip joint; Z90.49 Acquired absence of other specified parts of digestive tract; Z71.3 Dietary counseling and surveillance
CPT/HCPCS: 99285; 96376; 96372 ×2; 96375 ×2; 96361; 96374; 36415; 80061; 80053 ×2; 80048; 84484; 85025 ×2; 85027; 85610; 85730; 83036; 71046; 93880; 70450; 70553; 70544; G0378 ×2; C8929; J2270; J1200 ×2; J0780; J2765; J1885 ×2; Q9950; J1644 ×2; A9585; 93306